=== PATIENT | male | born 1960 | race Caucasian/White ===

== ENCOUNTER 2020-01-03 07:43 | Outpatient (CLI) | payer MEDICARE, SELFPAY ==
--- NOTE | 2020-01-03 07:54 | MR_ITS ---
WS: [id number] MRI LUMBAR SPINE WITH CONTRAST TECHNIQUE: Sagittal T1, T2 and STIR imaging. Axial T1 and T2 imaging. Post gadolinium imaging was obt ained. CLINICAL INFORMATION: LUMBAR DISC HERNIATION W/RADICULOPATHY;HX OF SPINAL SURGERY COMPARISON: None. FINDINGS: Prior postoperative changes laminectomy defects L3 and L4. Chronic mild compression L1 vertebral body unchanged. Hypertrophic changes lumbar spine. Mild lumbar curve. No high-grade central canal stenosi s. Alignment is unchanged since 2014. L1-L2: Normal. L2-L3: Mild annular bulging. Slight narrowing of the subarticular recess. Spinal canal and foramen ar e patent. Mild facet arthropathy. L3-L4: Mild disc bulging with slight effacement of ventral thecal sac. Laminectomy defects. Mild left and no significant right foraminal narrowing. L4-L5: Postoperative changes laminectomy defects. Enhancing granulation tissue in the ventral epidura l space. Mild central canal stenosis with left to right narrowing of the thecal sac. Narrowing of the subarticular recess. Mild to moderate right and no significant left foraminal narrowing. Moderate fa cet arthropathy. L5-S1: Prior laminectomy defects. Mild disc bulging and osteophytic ridging. L5 is partially sacraliz ed. Spinal canal foramen are patent. Moderate facet arthropathy. Small right greater than left renal cysts MR/MR lumbar spine wo/w con [id number] IMPRESSION: 1. Mild lumbar curve. No acute compression. Chronic anterior wedging at L1 unc hanged. 2. Prior laminectomy defects L3-L5 unchanged. 3. Mild central canal stenosis L4-5 with left to right narrowing of the thecal sac and narrowing of the subarticular recess. Enhancing granulation tissue in the ventral epidural space is unchanged. 4. Narrowing of the subarticular recess L3-L4 and L4-L5. 5. Mild to moderate right L4-5 foraminal narrowing. 6. Moderate facet arthropathy L3-L5.
== END 2020-01-03 07:44 | disposition home or self-care (01) ==
PROVIDERS: PCP Family Medicine; Visit Provider Family Medicine
DX: M51.16 Intervertebral disc disorders with radiculopathy, lumbar region (principal)
CPT/HCPCS: 72158; A9579

== ENCOUNTER 2021-01-21 21:35 | Emergency (ER) | payer MEDICARE, SELFPAY ==
[2021-01-21 22:00] VITALS: BP 159/96; PULSE 86; RESP 16; TEMP 36.9; O2SAT 94; BMI 38.2
--- NOTE | 2021-01-21 22:58 | XRR_ITS ---
PROCEDURE INFORMATION: Exam: XR Right Hip Exam date and time: 01/21/2021 10:58 PM Age: 60 years old Clinical indication: Injury or trauma; Fall; Blunt trauma (contusions or hematomas); Right; Hip; Prior surgery; Surgery date: 6+ months; Additional info: Fall, right hip pain TECHNIQUE: Imaging protocol: XR Right hip. Views: 1 view hip with pelvis when performed. COMPARISON: 1. CR XR hip RT 2-3V wo/w pel* [id number] 2019-12-08 13:[address] abdomen pelvis w con* [id number] 2017-04-06 19:[address] abdomen pelvis w con* [id number] 2015-01-25 18:06 4. US pelvic limited [id number] 2019-11-15 07:42 FINDINGS: Bones/joints: Arthrodesis of the right sacroiliac joint.No acute fracture or dislocation. Mild degenerative joint disease. Soft tissues: Unremarkable. XR/XR hip RT 2-3V wo/w pel* [id number] IMPRESSION: No acute osseous abnormality.
--- NOTE | 2021-01-22 00:56 | W.ED.FALL ---
HPI - Fall General: Chief Complaint: Fall Stated Complaint: fell/r hip & back injuries, surgery Time Seen by Provider: 01/22/21 00:53 History of Present Illness: HPI Narrative: This patient presents to the emergency department after a fall this afternoon. Patient plaint of right hip pain. Patient has had previous procedure with pins in the right hip. Patient states significant pain in her right hip area. Is able to ambulate. MD complaint: fall Associated symptoms-after fall: Denies abdominal pain, chest pain, headache(s), lightheadedness or neck pain Review of Systems General: Reports: 10 or more systems reviewed and unremarkable except in HPI and below Const: Denies: fever(s), chills, body aches or fatigue Eyes: Denies: change in vision or blurry vision ENMT: Denies: throat pain, hoarseness or mouth pain Card: Denies: chest pain, palpitations, irregular heart rhythm, edema, swelling of feet/ankles or lightheadedness Resp: Denies: dyspnea, productive cough, non-productive cough, wheezing or pain on inspiration GI: Denies: abdominal pain, nausea or vomiting : Denies: flank pain, dysuria, urinary frequency, urinary urgency or urinary hesitancy Musc: Reports: extremity pain and joint pain; Denies: neck pain, back pain, extremity swelling, joint swelling, joint redness, joint warmth or limited range of motion Skin/Breast: Denies: rash, pruritus, erythema or skin tenderness Neuro: Denies: headache(s), numbness in extremities or weakness in extremities Psych: Denies: anxiety or depression Physical Exam Const: COMMON NORMALS: no acute distress, average body habitus, patient oriented x3, no limitations, healthy appearing, alert and well nourished HENMT: COMMON NORMALS: normocephalic, atraumatic, hearing grossly normal bilaterally, external ears normal, EAC's normal, TM's normal bilaterally, Normal external nose present, Normal nasal mucous membranes and turbinates present, moist oral mucous membranes, oropharynx normal, dentition normal and gingiva normal HEAD & SCALP: normocephalic and atraumatic NOSE: Normal external nose present and Normal nasal mucous membranes and turbinates present EXTERNAL EAR: Yes external ears normal EXTERNAL AUDITORY CANAL: EAC's normal TYMPANIC MEMBRANE: TM's normal bilaterally Neck/C-Spine: COMMON NORMALS: full ROM, no lymphadenopathy, supple, no meningeal signs, no JVD, Thyroid normal and No carotid bruits THYROID: Thyroid normal Chest: COMMONS NORMALS: normal inspection of the chest, normal palpation of entire chest wall, normal inspection of the breasts and normal palpation of the breasts Breast/axilla inspection: Yes normal inspection of the breasts BREAST/AXILLA PALPATION: Yes normal palpation of the breasts Resp: COMMON NORMALS: normal respiratory effort, No retractions, No use of accessory muscles, clear to auscultation bilaterally and percussion normal AUSCULTATION: clear to auscultation bilaterally PERCUSSION: percussion normal Cardio: COMMON NORMALS: no JVD, regular rate, regular rhythm, S1 normal heart sound present, S2 normal heart sound present, No gallops present (Cardio), No clicks present (Cardio), No murmurs present (Cardio), No rub (Cardio) and Peripheral pulses 2+ throughout RATE: regular rate RHYTHM: regular rhythm HEART SOUNDS: S1 normal heart sound present and S2 normal heart sound present PERIPHERAL PULSES: Peripheral pulses 2+ throughout GI: COMMON NORMALS: Normal to inspection, nondistended, normoactive bowel sounds present, Soft to palpation, non-tender, No hepatosplenomegaly present, no masses and no bruits PALPATION: Yes Soft to palpation and Yes No hepatosplenomegaly present : COMMON NORMALS: Yes no CVA tenderness BLADDER/KIDNEY EXAM: Yes no CVA tenderness Back/Pelvis: COMMON NORMALS: no CVA tenderness, thoracic and lumbar spine normal to inspection, no thoracic nor lumbar tenderness, thoraco-lumbar ROM normal and straight leg raise negative bilaterally Extremity: COMMON NORMALS: normal to inspection, full ROM, capillary refill normal, no joint enlargement, no clubbing, cyanosis or edema, no calf tenderness and no pedal edema Neuro: COMMON NORMALS: patient oriented x3 SENSORIUM/ORIENTATION: Yes alert MENINGEAL SIGNS: Yes no meningeal signs Course Reevaluation(s): Reevaluation #1: Negative evaluation in the emergency department for any acute findings. Patient states he does have pain medicines at home that he can take. Patient given instructions alternate heat and ice. Patient be given a shot of Toradol prior to discharge. Patient will follow up with primary care physician in 2 to 3 days as needed. Time: 00:57 Vital Signs: Vital signs: Vital Signs Temperature 98.5 F 01/21/21 22:00 Pulse Rate 86 01/21/21 22:00 Respiratory Rate 16 01/21/21 22:00 Blood Pressure 159/96 01/21/21 22:00 Pulse Oximetry 94 01/21/21 22:00 MDM - Fall MDM Narrative: Medical decision making narrative: Negative evaluation in the emergency department for any acute findings. Patient states he does have pain medicines at home that he can take. Patient given instructions alternate heat and ice. Patient be given a shot of Toradol prior to discharge. Patient will follow up with primary care physician in 2 to 3 days as needed. Medical Records: Attestation: I reviewed the patient's medical records. Lab Data: Attestation: I reviewed the patient's lab results. Imaging Data^: Xray Ortho: Attestation: I personally reviewed and interpreted this imaging study as follows: Radiologist's impression: FINDINGS: Bones/joints: Arthrodesis of the right sacroiliac joint.No acute fracture or dislocation. Mild degenerative joint disease. Soft tissues: Unremarkable. XR/XR hip RT 2-3V wo/w pel* [id number] IMPRESSION: No acute osseous abnormality. Discharge Plan Discharge Patient Disposition: Home Clinical Impression: Fall, Hip pain, right Condition: Stable Discharge Orders: Discharge ED (Routine); Ordered 01/22/21 Ordered By: Randall Sánchez Referrals: Jt Bonds MD [Primary Care Provider] - Discharge Diet: Advance as tolerated Discharge Activity: Resume usual activity and Increase activity as tolerated Patient Instructions: Opioid Safety Activity Restrictions/Additional Instructions: Encourage p.o. fluids. Alternate heat and ice. Advance activity as part tolerated. Follow-up with PCP in 2 to 3 days. Continue home pain medications. Coding Level of Care Code ED Communications Tower Climber for Rebecca Blackman
[2021-01-22] MEDS: ketorolac 30 mg/mL INJ IM (01:01)
== END 2021-01-22 01:05 | disposition home or self-care (01) ==
PROVIDERS: Emergency Provider Emergency Medicine; PCP Family Medicine
DX: M25.551 Pain in right hip (principal)
CPT/HCPCS: 73502; 96372; 99283; J1885

== ENCOUNTER → 2021-05-01 07:37 | Outpatient (BNVA) | payer MEDICARE, SELFPAY | PROVIDERS: PCP Family Medicine; Referring Provider Family Medicine; Visit Provider Urology | DX: R97.20 Elevated prostate specific antigen [PSA] (principal); R30.0 Dysuria | CPT/HCPCS: 81003; 84153; 87086 ==

== ENCOUNTER → 2021-05-17 11:24 | Outpatient (BNVA) | payer MEDICARE, SELFPAY | PROVIDERS: PCP Family Medicine; Visit Provider Urology | DX: R97.20 Elevated prostate specific antigen [PSA] (principal) | CPT/HCPCS: 88305 ==

== ENCOUNTER 2021-05-21 07:20 | Emergency (ER) | payer MEDICARE, SELFPAY ==
[2021-05-21 07:59] VITALS: BP 105/69; PULSE 89; RESP 16; TEMP 36.9; O2SAT 95; BMI 38.0
--- NOTE | 2021-05-21 08:31 | W.ED.WEAKNES ---
HPI - Weakness General: Chief complaint: Weakness Stated complaint: prostate bx 05/17/21, states something not right Time Seen by Provider: 05/21/21 08:04 History of Present Illness: HPI Narrative: 61-year-old male presents emergency room complaining of generally not feeling well. Has had diarrhea and weakness. Is a little bit of dizziness as well. On May 17 he had a prostate biopsy. He has had a little bit of hematuria that has not been increasing. He denies any dysuria urgency or frequency or flank pain. He has had subjective fever with sweats and chills but no actually measured temperature. He has been extremely nauseous but has not had any vomiting. MD Complaint: generalized weakness Onset (ago): hour(s) Duration: constant Location: generalized Migration: none Relieving factors: none Exacerbating factors: none Associated symptoms: Denies chest pain, chills, confusion, melena, decreased appetite, diaphoresis, dysuria, easy bruising, fever(s), headache(s), myalgias, nausea, rash, short of breath, syncope or vomiting Review of Systems Const: Denies: fever(s), chills or diaphoresis ENMT: Denies: throat pain, ear or mastoid pain, nasal discharge or nasal congestion Card: Denies: chest pain or syncope Resp: Denies: dyspnea, productive cough or non-productive cough GI: Denies: nausea, vomiting or melena : Denies: dysuria Skin/Breast: Denies: rash or pruritus Neuro: Denies: headache(s) or confusion Yadiel/Lymph: Denies: easy bruising PFSH ED PFSH: Medical History Elevated PSA Erectile dysfunction Family history of prostate cancer Family History Brother Cancer 3 BROTHERS WITH PROSTATE CANCER Diabetes Father , AT AGE 82 PROSTATE CANCER Cancer Mother , AT AGE 78 BONE CANCER/PARKINSON'S Cancer Social History Alcohol intake: current Alcohol intake frequency: few times a month Marital status: / Current occupational status: retired Physical Exam Const: COMMON NORMALS: no acute distress GENERAL APPEARANCE: cooperative and comfortable ORIENTATION/CONSCIOUSNESS: Yes awake, Yes oriented to person, Yes oriented to place and Yes oriented to time HENMT: COMMON NORMALS: normocephalic, atraumatic and hearing grossly normal bilaterally HEAD & SCALP: normocephalic and atraumatic Neck/C-Spine: COMMON NORMALS: no JVD Resp: COMMON NORMALS: normal respiratory effort, No retractions, No use of accessory muscles and clear to auscultation bilaterally AUSCULTATION: clear to auscultation bilaterally Cardio: COMMON NORMALS: no JVD, regular rate, regular rhythm and No murmurs present (Cardio) RATE: regular rate RHYTHM: regular rhythm GI: COMMON NORMALS: Soft to palpation and No hepatosplenomegaly present AUSCULTATION: Yes normoactive bowel sounds PALPATION: Yes Soft to palpation, No Tenderness to palpation present (GI), No Guarding due to palpation present (GI) and Yes No hepatosplenomegaly present Extremity: COMMON NORMALS: normal to inspection, capillary refill normal, no clubbing, cyanosis or edema, no calf tenderness and no pedal edema Neuro: SENSORIUM/ORIENTATION: Yes oriented to person, Yes oriented to place and Yes oriented to time Skin: COMMON NORMALS: no rashes or lesions noted GENERAL SKIN EXAM: no rashes or lesions noted Course Vital Signs: Vital signs: Vital Signs Temperature 97.9 F 05/21/21 08:49 Pulse Rate 78 05/21/21 08:49 Respiratory Rate 18 05/21/21 08:49 Blood Pressure 99/76 05/21/21 08:49 Pulse Oximetry 97 05/21/21 08:49 MDM - Weakness MDM Narrative: Medical decision making narrative: Labs and imaging reviewed. Patient improved after fluids discharged home on levofloxacin daily for 7 days follow-up with Dr. Pedroza return if has problems Lab Data: Labs: Lab Results 05/21/21 05/21/21 05/21/21 08:15 08:45 08:55 WBC 7.8 10^3/uL 10^3/ uL (4.0-10.0) RBC 5.44 10^6/uL H 10 ^6/uL (4.1-5.3) Hgb 16.3 g/dL g/dL (11.7-16.6) Hct 48.7 % % (42.0-52.0) MCV 89.5 fl fl (80-94) MCH 30.0 pg pg (28.0-34.0) MCHC 33.5 g/dL g/dL (30.0-36.0) RDW 13.2 % % (12.1-15.1) Plt Count 123 10^3/cmm L 10 ^3/cmm (130-400) MPV 12.1 fL H fL (7.4-10.4) Neut % (Auto) 75.6 % % Lymph % (Auto) 14.2 % % Victoria % (Auto) 9.3 % % Eos % (Auto) 0.0 % % Baso % (Auto) 0.3 % % Neut # (Auto) 5.90 10^3/uL 10^3 /uL (1.8-7.7) Lymph # (Auto) 1.1 10^3/uL 10^3/ uL (0.8-4.8) Victoria # (Auto) 0.7 10^3/uL 10^3/ uL (0.2-0.9) Eos # (Auto) 0.0 10^3/uL 10^3/ uL (0.0-0.8) Baso # (Auto) 0.0 10^3/uL 10^3/ uL (0.0-0.1) Nucleated RBC % (a uto) 0 % % Nucleated RBCs # 0.0 /100WBC /100W BC Sodium 134 mmol/L L mmol /L (136-145) Potassium 3.9 mmol/L mmol/L (3.5-5.1) Chloride 97 mmol/L L mmol/ L (98-107) Carbon Dioxide 21 mmol/L L mmol/ L (22-29) Anion Gap 19.9 H (5-19) BUN 15 mg/dL mg/dL (8-23) Creatinine 0.9 mg/dL mg/dL (0.7-1.2) GFR Calculation 85.2 mL/min L mL/ min (90-130) Glucose 161 mg/dL H mg/dL (65-115) Calculated Osmolal ity 282 mOsm/kg L mOs m/kg (285-295) Calcium 8.2 mg/dL L mg/dL (8.5-10.5) Total Bilirubin 0.4 mg/dL mg/dL (0.15-1.2) AST 23 U/L U/L (0-40) ALT 28 U/L U/L (0-41) Alkaline Phosphata se 85 IU/L IU/L (40-130) Total Protein 7.4 g/dL g/dL (6.6-8.7) Albumin 3.9 g/dL g/dL (3.5-5.2) Globulin 3.5 g/dL g/dL (1.3-4.6) Urine Color Yellow (Yellow) Urine Appearance Cloudy (CLEAR) Urine pH 5 (5-7) Ur Specific Gravit y 1.025 (1.005-1.030) Urine Protein 2+ H (Negative) Urine Glucose (UA) Norm (Normal) Urine Ketones 1+ H (Negative) Urine Blood 3+ H (Negative) Urine Nitrate Negative (Negative) Urine Bilirubin 1+ H (Negative) Urine Urobilinogen Norm mg/dL mg/dL (Negative) Ur Leukocyte Reny ase Trace H (Negative) Urine RBC >100 /hpf H /hpf (0-2) Urine WBC 0-4 /hpf H /hpf (0-5) Ur Squamous Epith Cells 5-10 /hpf H /hpf (0-5) Amorphous Sediment Not Reportable Urine Bacteria 1+ /hpf H /hpf (NONE) Discharge Plan Discharge Patient Disposition: Home Clinical Impression: Dehydration, History of prostate biopsy, Weakness Condition: Stable Prescriptions: New levofloxacin 500 mg tablet 500 mg PO DAILY 7 Days Qty: 7 RF: 0 No Action oxycodone-acetaminophen [Percocet] 5-325 mg tablet 1 tab PO ONCE PRN (Reason: pain) 1 Days Qty: 1 RF: 0 diazepam 10 mg tablet 10 mg PO ONCE Qty: 1 RF: 0 levofloxacin 500 mg tablet 500 mg PO DAILY Qty: 4 RF: 0 finasteride 5 mg tablet 5 mg PO DAILY RF: 0 lisinopril 30 mg tablet 15 mg PO DAILY RF: 0 Allergy Relief (cetirizine) 10 mg capsule 10 mg PO DAILY PRNRF: 0 Discharge Orders: Discharge ED (Routine); Ordered 05/21/21 Ordered By: Dionisio Urbina Referrals: Jt Bonds MD [Primary Care Provider] - Discharge Diet: Clear Liquid Discharge Activity: Resume usual activity Patient Instructions: Opioid Safety Activity Restrictions/Additional Instructions: Discharge home we will do another course of antibiotics. Continue his other medications push fluids aggressively follow-up with Dr. Pedroza later this week return if has further problems. Coding Level of Care Code ED Radio Mechanic Apprentice for Rebecca Fwsabrina Exam Comprehensive
[2021-05-21 08:46] LABS: Alanine Aminotransferase 28 U/L (0-41); Albumin Level 3.9 g/dL (3.5-5.2); Alkaline Phosphatase 85 IU/L (40-130); Anion Gap 19.9 (5-19); Aspartate Amino Transferase 23 U/L (0-40); Blood Urea Nitrogen 15 mg/dL (8-23); Calcium 8.2 mg/dL (8.5-10.5); Carbon Dioxide 21 mmol/L (22-29); Chloride 97 mmol/L (98-107); Globulin 3.5 g/dL (1.3-4.6); Glomerular Filtration Rate 85.2 mL/min (90-130); Glucose 161 mg/dL (65-115); Osmolality Calculated 282 mOsm/kg (285-295); Potassium 3.9 mmol/L (3.5-5.1); Sodium 134 mmol/L (136-145); Total Bilirubin 0.4 mg/dL (0.15-1.2); Total Protein 7.4 g/dL (6.6-8.7)
[2021-05-21] MEDS: ondansetron 2 mg/ML SDV 2 mL 4 MG IVP (08:47)
[2021-05-21 08:49] VITALS: BP 99/76; PULSE 78; RESP 18; TEMP 36.6; O2SAT 97
[2021-05-21] MEDS: sodium chloride 0.9% 1,000 ML 999 ML IV (08:55)
[2021-05-21 09:09] LABS: Basophils % 0.3 %; Hematocrit 48.7 % (42.0-52.0); Hemoglobin 16.3 g/dL (11.7-16.6); Lymphocytes # 1.1 10^3/uL (0.8-4.8); Lymphocytes % 14.2 %; Mean Corpuscular HGB Conc 33.5 g/dL (30.0-36.0); Mean Corpuscular Volume 89.5 fl (80-94); Mean Platelet Volume 12.1 fL (7.4-10.4); Monocytes # 0.7 10^3/uL (0.2-0.9); Monocytes % 9.3 %; Neutrophils % 75.6 %; Nucleated Red Blood Cells % 0 %; Platelet Count 123 10^3/cmm (130-400); Red Blood Count 5.44 10^6/uL (4.1-5.3); Red Cell Distribution Width 13.2 % (12.1-15.1); White Blood Count 7.8 10^3/uL (4.0-10.0)
[2021-05-21 09:32] LABS: Blood Urine 3+ (Negative); Glucose Urine UA Norm (Normal); Ketones Urine 1+ (Negative); Protein Urine 2+ (Negative); Specific Gravity, Urine 1.025 (1.005-1.030); Urine Appearance Cloudy (CLEAR); Urine Color Yellow (Yellow); pH Urine 5 (5-7)
[2021-05-21 09:33] LABS: Add Urine Microscopic? YES; Bilirubin Urine 1+ (Negative); Leukocyte Esterase Urine Trace (Negative); Nitrate Urine Negative (Negative); Urobilinogen Urine Norm (Negative)
[2021-05-21 09:50] LABS: Add Urine Culture? Yes; Bacteria Urine 1+ /hpf; RBC Urine >100 /hpf (0-2); WBC Urine 0-4 /hpf (0-5)
== END 2021-05-21 10:45 | disposition home or self-care (01) ==
PROVIDERS: Physician Assistant; Emergency Provider Family Medicine; PCP Family Medicine
DX: R53.1 Weakness (principal); E86.0 Dehydration
CPT/HCPCS: 36415; 80053; 81001; 85025; 87040; 87086; 87205; 96361; 96374; 99284; J2405; J7030

== ENCOUNTER 2021-07-15 11:48 | Outpatient (CLI) | payer MEDICARE, SELFPAY ==
--- NOTE | 2021-07-15 13:41 | N.ONRAD NP_ITS ---
Radiation Oncology Consultation Patient Name: Michael Martinez Date of : 1960 Date of Service: 07/15/2021 Attending Physician: Bhavin Roberts M.D. Michael Martinez was seen in consultation this afternoon at the request of Kendrick Pedroza M.D. for consideration of prostate radiotherapy for the management of a recently diagnosed prostate cancer. He initially was identified to have an elevated PSA level (4 ng/mL) in April 2021. A transrectal ultrasound guided biopsy of the prostate gland was performed on May 17, 2021. Imaging demonstrated a prostatic volume of 36 cc without hypoechoic lesions identified. Pathology diagnosed a prostatic adenocarcinoma with a Michelle score of 3+3 (Grade Group 1) involving 40% of the specimen from the left lateral apex and 60 % of the core from the left mid gland. No perineural invasion was described. The patient presents for evaluation regarding radiotherapy treatment options. I discussed the AJCC clinical stage I (T1CN0) low- risk prostate cancer specific to the patient's diagnosis and the National Comprehensive Cancer Network Guidelines recommendation for active surveillance, external beam radiotherapy, brachytherapy, or surgery. If the patient elects radiotherapy, I would endorse a hypofractionated treatment regimen. I also discussed potential adverse events related to pelvic radiation treatment. I will prescribe Flomax in consideration of the patient???s IPSS of 17. The patient???s treatment plan was discussed with Kendrick Pedroza M.D. Signed by: Dr. Bhavin Roberts 07/15/2021 1:40:10 PM
== END 2021-07-15 11:49 | disposition home or self-care (01) ==
PROVIDERS: PCP Family Medicine; Visit Provider Radiology Radiation Oncology
DX: C61 Malignant neoplasm of prostate (principal); R97.20 Elevated prostate specific antigen [PSA]
CPT/HCPCS: 99205

== ENCOUNTER 2021-08-05 06:48 | Outpatient (RCR) | payer MEDICARE, SELFPAY ==
--- NOTE | 2021-07-30 | CT_ITS ---
Radiation Therapy Planning CT images; total exam DLP: 1101.63 mGy-cm MTDD
--- NOTE | 2021-08-05 09:36 | ONCRAD TMN_ITS ---
Radiation Oncology Treatment Management Note Patient Name: Michael Martinez Date of : 1960 Date of Service: 08/05/2021 Attending Physician: Bhavin Roberts M.D. Michael Martinez is a 59 year old white male diagnosed with a clinical stage I (T1CN0) low- risk prostate cancer. He initially was identified to have an elevated PSA level (4 ng/mL) in April 2021. A transrectal ultrasound guided biopsy of the prostate gland was performed on May 17, 2021. Imaging demonstrated a prostatic volume of 36 cc without hypoechoic lesions identified. Biopsies diagnosed a prostatic adenocarcinoma with a Michelle Score of 3+3 (Grade Group 1) involving 40% of the specimen from the left lateral apex and 60 % of the core from the left mid gland. No perineural invasion was described. The patient has received 3 Gy of a prescribed 60 Chiang to the prostate and seminal vesicles delivered with an intensity modulated radiotherapy plan utilizing a step and shoot treatment technique. Upon review of systems, he denied any genitourinary complaints related to radiotherapy. On physical examination, the patient weighed 287 lbs. His temperature was 97.6 ???F and the blood pressure was 139/93 mmHg. The pulse was 78 bpm and his respiratory rate was 16. There was no erythema within the treatment andersen. Continue prostate radiotherapy as prescribed. Signed by: Dr. Bhavin Roberts 08/05/2021 9:41:43 AM
== END 2021-08-05 23:59 | disposition home or self-care (01) ==
LOC: ONCMED 06:48
PROVIDERS: PCP Family Medicine; Visit Provider Radiology Radiation Oncology
DX: Z51.0 Encounter for antineoplastic radiation therapy (principal); C61 Malignant neoplasm of prostate
CPT/HCPCS: 77300; 77301; 77334; 77338; 77385

== ENCOUNTER 2021-09-02 07:20 | Outpatient (RCR) | payer MEDICARE, SELFPAY ==
--- NOTE | 2021-08-12 09:33 | ONCRAD TMN_ITS ---
Radiation Oncology Treatment Management Note Patient Name: Michael Martinez Date of : 1960 Date of Service: 08/12/2021 Attending Physician: Bhavin Roberts M.D. Michael Martinez is a 59 year old white male diagnosed with a clinical stage I (T1CN0) low- risk prostate cancer. He initially was identified to have an elevated PSA level (4 ng/mL) in April 2021. A transrectal ultrasound guided biopsy of the prostate gland was performed on May 17, 2021. Imaging demonstrated a prostatic volume of 36 cc without hypoechoic lesions identified. Biopsies diagnosed a prostatic adenocarcinoma with a Michelle Score of 3+3 (Grade Group 1) involving 40% of the specimen from the left lateral apex and 60 % of the core from the left mid gland. No perineural invasion was described. The patient has received 12 Gy of a prescribed 60 Chiang to the prostate and seminal vesicles delivered with an intensity modulated radiotherapy plan utilizing a step and shoot treatment technique. Upon review of systems, he denied any genitourinary complaints related to radiotherapy. On physical examination, the patient weighed 284 lbs. His temperature was 98.1 ???F and the blood pressure was 128/79 mmHg. The pulse was 86 bpm and his respiratory rate was 18. There was no erythema within the treatment andersen. Continue prostate radiotherapy as planned. Signed by: Dr. Bhavin Roberts 08/12/2021 9:31:21 AM
--- NOTE | 2021-08-19 09:45 | ONCRAD TMN_ITS ---
Radiation Oncology Treatment Management Note Patient Name: Michael Martinez Date of : 1960 Date of Service: 08/19/2021 Attending Physician: Bhavin Roberts M.D. Michael Martinez is a 59 year old white male diagnosed with a clinical stage I (T1CN0) low- risk prostate cancer. He initially was identified to have an elevated PSA level (4 ng/mL) in April 2021. A transrectal ultrasound guided biopsy of the prostate gland was performed on May 17, 2021. Imaging demonstrated a prostatic volume of 36 cc without hypoechoic lesions identified. Biopsies diagnosed a prostatic adenocarcinoma with a Michelle Score of 3+3 (Grade Group 1) involving 40% of the specimen from the left lateral apex and 60 % of the core from the left mid gland. No perineural invasion was described. The patient has received 27 Gy of a prescribed 60 Chiang to the prostate and seminal vesicles delivered with an intensity modulated radiotherapy plan utilizing a step and shoot treatment technique. Upon review of systems, he denied any genitourinary complaints related to radiotherapy. On physical examination, the patient weighed 285 lbs. His temperature was 97.8 ???F and the blood pressure was 121/74 mmHg. The pulse was 86 bpm and his respiratory rate was 16. There was no erythema within the treatment nadersen. Continue prostate radiotherapy as prescribed. Signed by: Dr. Bhavin Roberts 08/19/2021 9:45:14 AM
--- NOTE | 2021-08-26 09:18 | ONCRAD TMN_ITS ---
Radiation Oncology Treatment Management Note Patient Name: Michael Martinez Date of : 1960 Date of Service: 08/26/2021 Attending Physician: Bhavin Roberts M.D. Michael Martinez is a 59 year old white male diagnosed with a clinical stage I (T1CN0) low- risk prostate cancer. He initially was identified to have an elevated PSA level (4 ng/mL) in April 2021. A transrectal ultrasound guided biopsy of the prostate gland was performed on May 17, 2021. Imaging demonstrated a prostatic volume of 36 cc without hypoechoic lesions identified. Biopsies diagnosed a prostatic adenocarcinoma with a Michelle Score of 3+3 (Grade Group 1) involving 40% of the specimen from the left lateral apex and 60 % of the core from the left mid gland. No perineural invasion was described. The patient has received 42 Gy of a prescribed 60 Chiang to the prostate and seminal vesicles delivered with an intensity modulated radiotherapy plan utilizing a step and shoot treatment technique. Upon review of systems, he denied any genitourinary complaints related to radiotherapy. On physical examination, the patient weighed 290 lbs. His temperature was 97.5 ???F and the blood pressure was 137/91 mmHg. The pulse was 76 bpm and his respiratory rate was 18. There was no erythema within the treatment andersen. Continue prostate radiotherapy as planned. Signed by: Dr. Bhavin Roberts 08/26/2021 9:17:27 AM
--- NOTE | 2021-09-02 09:04 | ONCRAD TMN_ITS ---
Radiation Oncology Treatment Management Note Patient Name: Michael Martinez Date of : 1960 Date of Service: 09/02/2021 Attending Physician: Bhavin Roberts M.D. Michael Martinez is a 59 year old white male diagnosed with a clinical stage I (T1CN0) low- risk prostate cancer. He initially was identified to have an elevated PSA level (4 ng/mL) in April 2021. A transrectal ultrasound guided biopsy of the prostate gland was performed on May 17, 2021. Imaging demonstrated a prostatic volume of 36 cc without hypoechoic lesions identified. Biopsies diagnosed a prostatic adenocarcinoma with a Michelle Score of 3+3 (Grade Group 1) involving 40% of the specimen from the left lateral apex and 60 % of the core from the left mid gland. No perineural invasion was described. The patient has received 54 Gy of a prescribed 60 Chiang to the prostate and seminal vesicles delivered with an intensity modulated radiotherapy plan utilizing a step and shoot treatment technique. Upon review of systems, he denied any genitourinary complaints related to radiotherapy. On physical examination, the patient weighed 290 lbs. His temperature was 97.8 ???F and the blood pressure was 140/88 mmHg. The pulse was 82 bpm and his respiratory rate was 20. There was no erythema within the treatment andersen. Continue prostate radiotherapy as prescribed. Signed by: Dr. Bhavin Roberts 09/02/2021 9:03:23 AM
== END 2021-09-02 23:59 | disposition home or self-care (01) ==
LOC: ONCMED 07:20
PROVIDERS: PCP Family Medicine; Visit Provider Radiology Radiation Oncology
DX: Z51.0 Encounter for antineoplastic radiation therapy (principal); C61 Malignant neoplasm of prostate; Z79.899 Other long term (current) drug therapy
CPT/HCPCS: 77014; 77336; 77385

== ENCOUNTER 2021-09-04 08:19 | Outpatient (RCR) | payer MEDICARE, SELFPAY ==
--- NOTE | 2021-09-04 08:25 | N.ONRD TS_ITS ---
Radiation OncologyTreatment Summary Patient Name: Michael Martinez Date of : 1960 Date of Service: 09/04/2021 Attending Physician: Bhavin Roberts M.D. Michael Martinez has completed prostate radiotherapy for the management of a clinical stage I (T1CN0) low- risk prostate cancer. He initially was identified to have an elevated PSA level (4 ng/mL) in April 2021. A transrectal ultrasound guided biopsy of the prostate gland was performed on May 17, 2021. Imaging demonstrated a prostatic volume of 36 cc without hypoechoic lesions identified. Biopsies diagnosed a prostatic adenocarcinoma with a Tioga Score of 3+3 (Grade Group 1) involving 40% of the specimen from the left lateral apex and 60 % of the core from the left mid gland. No perineural invasion was described. Daily radiotherapy was administered between the dates of August 05, 2021 through September 04, 2021. A prescribed dose of 60 Gy was delivered in 20 fractions encompassing 31 elapsed days. The prostate gland and proximal seminal vesicles were treated utilizing an IMRT plan using a step and shoot treatment technique. The plan arranged seven gantry angles (0???, 50???, 100???, 150???, 210???, 260???, and 310???) replicating an arc. The collimator rotation was 0???. The field sizes spanned between 9.7 cm x 8.3 cm to 11.2 cm x 8.1 cm. The SSDs measured a minimum of 75.2 cm to a maximum of 84 cm. The ports delivered 191 MU, 143 MU, 118 MU, 160 MU, 162 MU, 112 MU, and 148 MU corresponding to the gantry angles described. All treatments were performed on the gloStream linear accelerator with an isocentric technique. The dose was calculated by Anisotropic Analytic Algorithm. A photon energy of 6 MV was prescribed. The plan was normalized to deliver 100% of the prescription dose to 95% of the planning target volume. Signed by: Dr. Bhavin Roberts 09/04/2021 8:24:14 AM
== END 2021-10-03 23:59 | disposition home or self-care (01) ==
LOC: ONCMED 08:19
PROVIDERS: PCP Family Medicine; Visit Provider Radiology Radiation Oncology
DX: Z51.0 Encounter for antineoplastic radiation therapy (principal); C61 Malignant neoplasm of prostate; Z79.899 Other long term (current) drug therapy
CPT/HCPCS: 77014; 77336; 77385; 77427

== ENCOUNTER 2021-10-04 08:29 | Outpatient (RCR) | payer MEDICARE, SELFPAY ==
--- NOTE | 2021-10-04 08:56 | ONCRAD EPV_ITS ---
Radiation Oncology Follow-Up Note Patient Name: Michael Martinez Date of : 1960 Date of Service: 10/04/2021 Attending Physician: Bhavin Roberts M.D. Michael Martinez returned to my office this morning for a routinely scheduled follow-up appointment. He completed hypofractionated prostate radiotherapy in September for the management of his clinical stage I (T1CN0) low- risk prostate cancer. He initially was identified to have an elevated PSA level (4 ng/mL) in April 2021. A transrectal ultrasound guided biopsy of the prostate gland was performed on May 17, 2021. Imaging demonstrated a prostatic volume of 36 cc without hypoechoic lesions identified. Biopsies diagnosed a prostatic adenocarcinoma with a Michelle Score of 3+3 (Grade Group 1) involving 40% of the specimen from the left lateral apex and 60 % of the core from the left mid gland. No perineural invasion was described. Daily radiotherapy was administered between the dates of August 05, 2021 through September 04, 2021. A prescribed dose of 60 Gy was delivered in 20 fractions encompassing 31 elapsed days. On review of systems, the patient denied genitourinary complaints. He currently has been prescribed Flomax with good results. On physical examination, he weighed 297 pounds. The temperature is 97.6???F. His blood pressure was 127/85 mmHg. The pulse was 78 bpm and his respiratory rate was 18 breaths per minute. Genitourinary exam was deferred. In summary, Mr. Martinez returned for a routine post-radiotherapy follow-up. A PSA test obtained prior to this visit was 1.5 ng/mL. He will continue follow-up with his urologist. Signed by: Dr. Bhavin Roberts 10/04/2021 10:15:30 AM
== END 2021-11-02 23:59 | disposition home or self-care (01) ==
LOC: ONCMED 08:29
PROVIDERS: PCP Family Medicine; Visit Provider Radiology Radiation Oncology
DX: C61 Malignant neoplasm of prostate (principal); Z79.899 Other long term (current) drug therapy; Z92.3 Personal history of irradiation
CPT/HCPCS: 99024

== ENCOUNTER 2021-11-14 08:49 | Outpatient (CLI) | payer MEDICARE, SELFPAY | END 2021-11-14 08:50 | disposition home or self-care (01) | LOC: LAB 08:51 | PROVIDERS: PCP Family Medicine; Visit Provider Urology | DX: C61 Malignant neoplasm of prostate (principal); R39.9 Unspecified symptoms and signs involving the genitourinary system | CPT/HCPCS: 36415; 51798; 81003; 84153; 99213 ==

== ENCOUNTER 2022-03-17 08:41 | Outpatient (CLI) | payer MEDICARE, SELFPAY ==
[2022-03-17 09:32] LABS: Prostate Specific Antigen 0.873 ng/mL (0-4)
== END 2022-03-17 08:42 | disposition home or self-care (01) ==
LOC: LAB 08:43
PROVIDERS: PCP Family Medicine; Visit Provider Urology
DX: C61 Malignant neoplasm of prostate (principal)
CPT/HCPCS: 36415; 84153

== ENCOUNTER → 2022-03-20 12:32 | Outpatient (BNVA) | payer MEDICARE, SELFPAY | PROVIDERS: PCP Family Medicine; Visit Provider Urology | DX: C61 Malignant neoplasm of prostate (principal); R39.9 Unspecified symptoms and signs involving the genitourinary system; N52.9 Male erectile dysfunction, unspecified | CPT/HCPCS: 51798; 99213 ==

== ENCOUNTER → 2022-04-03 10:18 | Outpatient (BNVA) | payer MEDICARE, SELFPAY | PROVIDERS: PCP Family Medicine; Visit Provider Urology | DX: R39.9 Unspecified symptoms and signs involving the genitourinary system (principal); N52.9 Male erectile dysfunction, unspecified; C61 Malignant neoplasm of prostate | CPT/HCPCS: 81003 ==

== ENCOUNTER 2022-07-15 09:41 | Outpatient (CLI) | payer MEDICARE, SELFPAY ==
[2022-07-15 11:02] LABS: Prostate Specific AG Urology 0.56 ng/mL (0-4)
== END 2022-07-15 09:42 | disposition home or self-care (01) ==
PROVIDERS: PCP Family Medicine; Visit Provider Urology
DX: C61 Malignant neoplasm of prostate (principal)
CPT/HCPCS: 36415; 84153

== ENCOUNTER → 2022-07-17 08:27 | Outpatient (BNVA) | payer MEDICARE, SELFPAY | PROVIDERS: PCP Family Medicine; Visit Provider Urology | DX: C61 Malignant neoplasm of prostate (principal); N52.9 Male erectile dysfunction, unspecified; R39.9 Unspecified symptoms and signs involving the genitourinary system | CPT/HCPCS: 51741; 51798; 81003; 99213 ==

== ENCOUNTER 2023-03-11 13:19 | Outpatient (CLI) | payer MEDICARE, SELFPAY | END 2023-03-11 13:20 | disposition home or self-care (01) | PROVIDERS: PCP Family Medicine; Visit Provider Family Medicine | DX: R06.09 Other forms of dyspnea (principal) | CPT/HCPCS: 94010; 94726; 94729 ==

== ENCOUNTER → 2023-03-30 14:00 | Outpatient (BNVA) | payer MEDICARE, SELFPAY | PROVIDERS: PCP Family Medicine; Referring Provider Family Medicine; Visit Provider Internal Medicine | DX: R07.9 Chest pain, unspecified (principal) | CPT/HCPCS: 93005 ==

== ENCOUNTER → 2023-04-14 12:46 | Outpatient (BNVA) | payer MEDICARE, SELFPAY | PROVIDERS: PCP Family Medicine; Referring Provider Family Medicine; Visit Provider Internal Medicine | DX: R07.9 Chest pain, unspecified (principal); R00.0 Tachycardia, unspecified; R06.09 Other forms of dyspnea; I10 Essential (primary) hypertension; Z87.891 Personal history of nicotine dependence; R94.31 Abnormal electrocardiogram [ECG] [EKG] | CPT/HCPCS: 93005; 99204 ==

== ENCOUNTER 2023-04-22 07:16 | Outpatient (CLI) | payer MEDICARE, SELFPAY ==
[2023-04-22 07:26] VITALS: BMI 38.9
--- NOTE | 2023-04-22 07:30 | ECG_ITS ---
[facility] Test Date: 2023-04-22 Pat Name: Michael Martinez Department: Room: Gender: Male Transplanter Orchid: Efraín Benedict : 1960 Requested By: Hugo Cuba Order Number: [id number] Edmond MD: Hugo Cuba M.D. Interpretive Statements NAME OF STUDY: LEXISCAN SESTAMIBI STRESS TEST INDICATION: [Chest Pain; Shortness of Breath, ] Procedure: At the baseline, the blood pressure was 118/96 mmHg with a heart rate of 77 bpm. The electrocardiogram showed normal sinus rhythm, normal axis with normal ST and T's. The Lexiscan was infused over a period of 20 seconds. A total of 0.4 mg of Lexiscan was infused. The stress phase was continued for a total of 5 minutes. Heart rate was at the end of stress phase was 106 bpm and a blood pressure of 137/91 mmHg. The EKG at the peak infusion revealed normal sinus rhythm with no significant ST-T wave changes. Sestamibi was injected 20 seconds after the Lexiscan infusion. Blood pressure at the end of recovery phase was 138/94 mmHg with a heart rate of 97 bpm. Conclusion: 1. Normal EKG response to Lexiscan infusion 2. No Lexiscan induced chest pain or cardiac arrhythmia. 3. Normal blood pressure and heart rate response. 4. Sestamibi/sestamibi perfusion scan pending; see separate report. Electronically Signed On 04-30-2023 12:48:52 CDT by Hugo Cuba M.D. [id number]
--- NOTE | 2023-04-22 07:30 | NMCV_ITS ---
NM maynor perf SPECT r/s* [id number] Michael Martinez Age: 63 Gender: M : 1960 Exam Date: 04/22/2023 07:50 Ordering Phys: Hugo Cuba M.D ([email or web address]) Technologist: SADIQ Santoyo Exam Location: [facility] Indications: CHEST PAIN, SHORTNESS OF BREATH STRESS TEST Please see separate stress test report in [facility] for full findings IMAGE PROTOCOL Rest/Stress 1 Lexiscan Day Radiopharmaceutical Dose (mCi) Administration Site Administered by Rest: Tc-99m 10.9 IV Sunny Luz, SENIOR BRANCH MANAGER Sestamibi Stress:Tc-99m 32.9 IV Sunny Luz, SENIOR BRANCH MANAGER Sestamibi Rest: 22-Apr-2023 60 Discovery 630 Stress: 22-Apr-2023 30 Discovery 630 0.4mg Lexiscan. Images obtained in supine and prone position. SPECT RESULTS Technical Quality: Excellent Raw Data Analysis: Normal Image Corrections: No attenuation or motion correction applied Summed Stress Score: 0 Summed Rest Score: 0 Summed Difference Score: 0 PERFUSION FINDINGS SPECT images demonstrate homogeneous tracer distribution throughout the myocardium. FUNCTIONAL RESULTS (calculated via Gated SPECT) Stress Image LV EF (%): 64 Stress EDV (mL):100 TID: 1.05 Stress ESV (mL):36 FUNCTIONAL FINDINGS: There is normal left ventricular systolic function. IMPRESSIONS 1. Normal myocardial perfusion imaging with no evidence of ischemia 2. LV systolic function is normal Hugo Cuba MD (Electronically Signed) Final Date: 22 April 2023 13:17 S
[2023-04-22] MEDS: regadenoson 0.4 Mg/5 ml Syringe IVP (08:53)
[2023-04-22 09:13] VITALS: BP 138/94; PULSE 97
== END 2023-04-22 07:17 | disposition home or self-care (01) ==
LOC: CDL 07:16
PROVIDERS: PCP Family Medicine; Visit Provider Internal Medicine
DX: R07.9 Chest pain, unspecified (principal); R06.02 Shortness of breath
CPT/HCPCS: 36415; 78452; 85378; 93017; 96374; A9500; J2785

== ENCOUNTER 2023-04-30 08:12 | Outpatient (CLI) | payer MEDICARE, SELFPAY ==
--- NOTE | 2023-04-30 08:30 | USCV_ITS ---
Michael Martinez Age: 63 Gender: M : 1960 Exam Date: 04/30/2023 08:28 Ordering Phys: Hugo Cuba M.D ([email or web address]) Technologist: Melinda Hernandez Exam Location: [facility] [place] Indication: sob chest pain BP: 120 / 80 HR: 76 Rhythm: Sinus Technical Quality: Adequate MEASUREMENTS (Male / Female) Normal Values 2D ECHO LV Diastolic Diameter PLAX 3.8 cm 4.2 - 5.9 / 3.9 - 5.3 cm LV Systolic Diameter PLAX 2.8 cm LV Chamber Size 3.2 cm IVS Diastolic Thickness 0.9 cm 0.6 - 1.0 / 0.6 - 0.9 cm IVS Systolic Thickness 1.3 cm LVPW Diastolic Thickness 1.3 cm 0.6 - 1.0 / 0.6 - 0.9 cm LVPW Systolic Thickness 1.3 cm LVOT Diameter 2.1 cm LV Ejection Fraction 2D Teich 53.7 % LV Ejection Fraction MOD 2C 46.6 % LV Ejection Fraction 2C AL 47.7 % LA Diameter 3.2 cm LA Width 3.5 cm LA Height 3.6 cm RA Width 2.9 cm RA Height 2.9 cm Aorta at Sinotubular Diameter 3.1 cm IVC Diameter 2.1 cm M-MODE Aortic Annulus Diameter 4.0 cm LA Ao Ratio MM 0.9 MV E Point Septal Separation 0.4 cm DOPPLER AV Peak Velocity 125.0 cm/s LVOT Peak Velocity 93.0 cm/s AV Area Cont Eq vti 3.6 cm squared AV Area Cont Eq pk 2.6 cm squared MV Area PHT 2.9 cm squared Mitral E to A Ratio 0.9 MV E' Velocity 37.0 cm/s Mitral E to MV E' Ratio 9.9 Mitral E to LV E' Lateral Ratio 9.9 Mitral E to LV E' Septal Ratio 10.0 TR Peak Velocity 179.8 cm/s TR Peak Gradient 12.9 mmHg TR Mean Velocity 121.0 cm/s TR Mean Gradient 6.8 mmHg TR Velocity Time Integral 35.8 cm TV Peak E Velocity 65.0 cm/s Right Atrial Pressure 3.0 mmHg Pulmonary Artery Systolic Pressu 15.9 mmHg RV Acceleration Time 0.1 s RV Ejection Time 0.3 s RV AcT/ET 0.3 FINDINGS Left Ventricle Technically limited quality echocardiogram because of poor ultrasonic windows. Left ventricle is normal in size. LV systolic function is normal with EF of 50 to 55%. No regional wall motion abnormalities are seen. Grade 1 diastolic dysfunction Right Ventricle Normal in size and function Right Atrium Normal in size Left Atrium Normal in size Mitral Valve Structurally normal mitral valve. Aortic Valve Structurally normal aortic valve.No significant stenosis or regurgitation. Tricuspid Valve Mild tricuspid regurgitation. Insufficient TR jet to calculate RVSP. Pulmonic Valve Mild pulmonic regurgitation. Pericardium Normal Aorta Normal in size IVC Grossly normal CONCLUSIONS Technically limited quality echocardiogram because of poor ultrasonic windows. LV systolic function is normal with EF of 50 to 55%. Grade 1 diastolic dysfunction. Mild tricuspid regurgitation Mild pulmonic regurgitation. No comparison studies are available Hugo Cuba MD (Electronically Signed) Final Date: 03 May 2023 11:56 S
== END 2023-04-30 08:13 | disposition home or self-care (01) ==
LOC: RAD 08:13
PROVIDERS: PCP Family Medicine; Visit Provider Internal Medicine
DX: I07.1 Rheumatic tricuspid insufficiency (principal); R06.02 Shortness of breath; R07.9 Chest pain, unspecified
CPT/HCPCS: 93306

== ENCOUNTER → 2023-06-17 12:05 | Outpatient (BNVA) | payer MEDICARE, SELFPAY | PROVIDERS: PCP Family Medicine; Visit Provider Internal Medicine | DX: R06.09 Other forms of dyspnea (principal); I10 Essential (primary) hypertension; Z87.891 Personal history of nicotine dependence | CPT/HCPCS: 99214 ==

== ENCOUNTER → 2024-01-05 12:40 | Outpatient (BNVA) | payer MEDICARE, MEDICAID, SELFPAY | PROVIDERS: PCP Family Medicine; Referring Provider Family Medicine; Visit Provider Student in an Organized Health Care Education/Training Program | DX: M72.0 Palmar fascial fibromatosis [Dupuytren]; M79.641 Pain in right hand; M79.642 Pain in left hand | CPT/HCPCS: 73130; 99203 ==

== ENCOUNTER → 2024-06-15 12:19 | Outpatient (BNVA) | payer MEDICARE, MEDICAID, SELFPAY | PROVIDERS: PCP Family Medicine; Visit Provider Internal Medicine | DX: R06.09 Other forms of dyspnea (principal); I10 Essential (primary) hypertension; Z87.891 Personal history of nicotine dependence | CPT/HCPCS: 99213 ==

== ENCOUNTER 2025-05-22 08:34 | Emergency (ER) | payer MEDICARE, MEDICAID, SELFPAY ==
--- OUTSIDE RECORDS SUMMARY | 2024-01-25 07:15 | XMS_ITS ---
Author Organization [employer], [facility] Address [address] [place] [address] Care Team Providers Care Lining Caser Name Role Phone Vamshi SCHAEFER, Jt Primary Care Provider [facility] [phone] Encounters Encounter Location Date Provider Diagnosis [facility] [place] [address] [place] [address] 01/25/2024 [facility] History of prostate cancer Z85.46 and BPH loc w urin obs/LUTS N40.1 Assessments Encounter Date Diagnosis (ICD Code) Assessment Notes Treatment Notes Treatment Clinical Notes Section Notes 01/25/2024 History of prostate cancer (ICD-10 - Z85.46) 01/25/2024 BPH loc w urin obs/LUTS (ICD-10 - N40.1) Plan Of Treatment Pending Test Test Name Order Date PSA-Diagnostic 01/25/2024 Next Appt Details Provider Name:[facility], 04/30/2026 09:15:00 AM, [address] [place], [address], Progress Notes * Michael BACON DDOB:[birth year] (65 yo M)Acc No.[id number]:01/25/2024 Patient: Isak Michael MCDERMOTT :1960 A ge:63 Y S ex:Male Address:[address] [place] [address] [address], [place] [address] Subjective: * Chief Complaints: * * Medical History: * Surgical History: * Hospitalization/Major Diagno stic Procedure: * Medications: Objective: * Vitals: * Physical Examination: Assessment: * Assessment: 1. H istory of prostate cancer - Z85.46 2 . B PH loc w urin obs/LUTS - N40.1 Plan: * Treatment: 2.?BPH loc w urin obs/LUTS?LAB: PSA-Diagnostic* Catalina Grace 01/25/2024 0 1:20:26 PM CDT >Patient needs prior to appt on 03/14/24. * Procedure Codes: * * Date:
--- OUTSIDE RECORDS SUMMARY | 2024-04-30 03:00 | XMS_ITS ---
Author Organization [facility] Address [address] [place] [address] Care Team Providers Care Acid Blower Name Role Phone Vamshi SCHAEFER, Jt Primary Care Provider Unavailabl Lizzy Briones Unavailable [phone] Migration, Provider Unavailable Unavailable REASON FOR VISIT EMR-Rich Encounters Encounter Location Date Provider Diagnosis Migrated_Facility 0 0 04/30/2024 Provider Migration Plan Of Treatment No Information Progress Notes * Michael BACON DDOB:[birth year] (65 yo M)Acc No.[id number]:04/30/2024 Patient: Isak PANTOJAMichael ADAEMS :1960 A ge:64 Y S ex:Male Address:[address] [place] [address] [address], [place] [address] Subjective: * Chief Complaints: * E MR-Rich * * Date:
--- OUTSIDE RECORDS SUMMARY | 2024-05-01 03:00 | XMS_ITS ---
Author Organization [facility] Address [address] [place] [address] Care Team Providers Care Wire Mesh Knitter Name Role Phone Vamshi SCHAEFER, Jt Primary Care Provider Unavailabl Lizzy Briones Unavailable [phone] Migration, Provider Unavailable Unavailable REASON FOR VISIT EMR-Rich Encounters Encounter Location Date Provider Diagnosis Migrated_Facility 0 0 05/01/2024 Provider Migration Plan Of Treatment No Information Progress Notes * Michael BACON DDOB:[birth year] (65 yo M)Acc No.[id number]:05/01/2024 Patient: Isak PANTOJAMichael ADAMES :1960 A ge:64 Y S ex:Male Address:[address] [place] [address] [address], [place] [address] Subjective: * Chief Complaints: * E MR-Rich * * Date:
[2025-05-22 08:40] VITALS: BP 133/90; PULSE 76; RESP 16; TEMP 36.6; O2SAT 98; BMI 29.7
--- NOTE | 2025-05-22 08:53 | CT_ITS ---
WS: [id number] CT LUMBAR SPINE TECHNIQUE: Noncontrast CT of the lumbar spine with coronal and sagittal reformatted images. CLINICAL INFORMATION: Back pain left leg radicular pain history of prostate cancer COMPARISON: CT 2016 DLP: 1074.[address] scans at [facility] use at least one of these dose optimization techniques: automated exposure control; mA and/or kV adjustment per patient size (includes targeted exams where dose is matched to clinical indication); or iterative reconstruction. FINDINGS: Moderate to advanced spondylitic changes lumbar spine. Anterior hypertrophic changes. Lumbar curve. Ankylosis T12-L1. Evidence of prior decompressive laminectomies L3-L5. RIGHT SI joint screw fusion. Spondylitic changes somewhat progressed since 2016. Partially visualized solid-appearing mass LEFT mid kidney measuring up to 3.8 cm. Renal neoplasm not excluded. Recommend follow-up with ultrasound or contrast-enhanced CT abdomen pelvis. 1.7 cm cyst lower pole RIGHT kidney. Adrenal glands are normal. Cholecystectomy clips. Diverticulosis. L1-L2: Normal. L2-L3: Moderate facet arthropathy. Narrowing of the subarticular recess bilaterally. Foramen are patent. L3-L4: Disc osteophyte complex with narrowing of the subarticular recess bilaterally. Laminectomy defects. Mild residual central canal stenosis. Moderate bilateral bony foraminal narrowing. L4-L5: Mild disc bulging with narrowing of the subarticular recess bilaterally. Mild central canal stenosis. Prior laminectomy defects. Moderate facet arthropathy. Moderate RIGHT and mild LEFT foraminal narrowing. L5-S1: No significant disc bulging. Moderate facet arthropathy. Spinal canal and foramen are patent. CT/CT lumbar spine wo con* [id number] IMPRESSION: 1. Partially visualized solid-appearing LEFT renal mass measuring up to at millie st 3.8 cm. Renal neoplasm not excluded. Recommend further evaluation with ultra sound or contrast-enhanced CT. 2. RIGHT SI joint screw fixation. 3. Laminectomy defects L3-L5. Mild residual central canal stenosis L3-4 and L4 -5 with narrowing of the subarticular recess bilaterally. 4. Moderate RIGHT L4-5 foraminal narrowing. 5. Moderate bilateral L3-4 bony foraminal narrowing.
[2025-05-22] MEDS: methylPREDNISolone sod succ 125 mg/2 mL INJ IVP (09:10)
--- NOTE | 2025-05-22 09:18 | ED_ITS ---
HPI - Back Pain/Injury 2 General: Chief Complaint: Back Pain/Injury Stated Complaint: back pain Time Seen by Provider: 05/22/25 08:40 History of Present Illness: Six 5-year-old male presents emergency room with complaint of back pain with pain radiating into his left leg. No saddle paresthesias no fecal incontinence no urinary retention has a history of prostate cancer is not currently being treated no recent trauma or fall. Back pain has been present for the last 2 weeks progressively worsening. No previous surgery to the back. No hematochezia melena symptoms [place] no dysuria urgency or frequency or hematuria Associated symptoms: Deny abdominal pain, chills, dysuria, fever(s) or urinary urgency Related Data Home Medications ?Medication ?Instructions ?Recorded ?Confirmed cetirizine 10 mg capsule (Allergy 10 mg PO DAILY PRN A LLERGIES 04/19/21 05/22/25 Relief (cetirizine)) finasteride 5 mg tablet 5 mg PO DAILY 04/19/2105/22 lisinopril 30 mg tablet 15 mg PO DAILY 04/19/2105/06 Previous Rx's ?Medication ?Instructions ?Recorded tadalafil 20 mg tablet 20 mg PO DAILY PRN sexual ac tivity 03/20/22 #20 tabs diclofenac sodium 75 mg 75 mg PO Q12H PRN pain #20 t abs 05/22/25 tablet,delayed release methylprednisolone 4 mg tablets in See Rx Instructions PO .COMPLEX 05/22/25 a dose pack (Medrol (Edu)) #21 ea tizanidine 4 mg tablet 4 mg PO Q6H PRN muscle spast icity 05/22/25 #20 tabs Allergies Allergy/AdvReac Type Severity Reaction Status Date / Time No Known Allergies Allergy Verified 01/05/24 13:00 Review of Systems 2 Const: Denies: fever(s) or chills Card: Denies: chest pain Resp: Denies: dyspnea GI: Denies: abdominal pain : Denies: dysuria, urinary frequency or urinary urgency Musc: Denies: neck pain or back pain Skin/Breast: Denies: rash PFSH ED 2 PFSH: Medical History Osteoarthritis, chronic Hyperglycemia Prostate cancer Erectile dysfunction Family history of prostate cancer Elevated PSA Surgical History History of spinal fusion History of cholecystectomy History of cervical spinal surgery History of sinus surgery History of straightening of nasal septum Family History Brother Cancer 3 BROTHERS WITH PROSTATE CANCER Diabetes Father , AT AGE 82 PROSTATE CANCER Cancer Mother , AT AGE 78 BONE CANCER/PARKINSON'S Cancer Social History Smoking and tobacco/nicotine status: former use of tobacco/nicotine Alcohol intake: current Alcohol intake frequency: few times a month Substance/Drug Use: never Marital status: Life Partner Current occupational status: retired Physical Exam 2 Const: COMMON NORMALS: no acute distress GENERAL APPEARANCE: cooperative and comfortable ORIENTATION/CONSCIOUSNESS: Yes awake, Yes oriented to person, Yes oriented to place and Yes oriented to time HENMT: COMMON NORMALS: normocephalic, atraumatic and hearing grossly normal bilaterally HEAD & SCALP: normocephalic and atraumatic Resp: COMMON NORMALS: normal respiratory effort, No retractions, No use of accessory muscles and clear to auscultation bilaterally AUSCULTATION: clear to auscultation bilaterally Cardio: COMMON NORMALS: regular rate, regular rhythm and No murmurs present (Cardio) RATE: regular rate RHYTHM: regular rhythm GI: COMMON NORMALS: Soft to palpation and No hepatosplenomegaly present A USCULTATION: Yes normoactive bowel sounds PALPATION: Yes Soft to palpation, No Tenderness to palpation present (GI), No Guarding due to palpation present (GI) and Yes No hepatosplenomegaly present Extremity: COMMON NORMALS: normal to inspection, capillary refill normal, no clubbing, cyanosis or edema, no calf tenderness and no pedal edema Neuro: SENSORIUM/ORIENTATION: Yes oriented to person, Yes oriented to place and Yes oriented to time OTHER: Lower extremities intact neurovascularly. Straight leg raising positive on the left. Skin: COMMON NORMALS: no rashes or lesions noted GENERAL SKIN EXAM: no rashes or lesions noted Course 2 Vital Signs: Vital signs: Vital Signs Temperature 97.8 F 05/22/25 08:40 Pulse Rate 76 05/22/25 08:40 Respiratory Rate 18 05/22/25 10:28 Blood Pressure 133/90 05/22/25 08:40 Pulse Oximetry 98 05/22/25 08:40 MDM - Back Pain/Injury Medical Decision Making Back pain improved after medications given his radicular symptoms are improved as well he has no red flag symptoms for cauda equina at this time CT did not show any concern for metastatic lesions to the lumbar spine this is evaluated given his history of prostate cancer. There is an incidental finding of partially visualized left renal mass. He is not having urinary tract symptoms at this time. Discussed with radiologist we will set him up for an outpatient CT of the abdomen and pelvis to further evaluate. I discussed with Dr. Bonds he is aware and will follow-up on it to ensure workup is completed. Medical Records I reviewed the patient's medical records. Labs I reviewed the patient's lab results. 05/22/25 09:49 05/22/25 09:49 Radiology Impressions Lumbar Spine CT 05/22/25 08:53 IMPRESSION: 1. Partially visualized solid-appearing LEFT renal mass measuring up to at least 3.8 cm. Renal neoplasm not excluded. Recommend further evaluation with ultrasound or contrast-enhanced CT. 2. RIGHT SI joint screw fixation. 3. Laminectomy defects L3-L5. Mild residual central canal stenosis L3-4 and L4- 5 with narrowing of the subarticular recess bilaterally. 4. Moderate RIGHT L4-5 foraminal narrowing. 5. Moderate bilateral L3-4 bony foraminal narrowing. Laboratory Results WBC 7.00 10^3/uL (3.29-11.43) 05/22/25 09:49 RBC 5.09 10^6/uL (3.85-5.65) 05/22/25 09:49 Hgb 15.10 g/dL (11.27-16.99) 05/22/25 09:49 Hct 46.1 % (37-53) 05/22/25 09:49 MCV 90.6 fl (82-101) 05/22/25 09:49 MCH 29.7 pg (27-33) 05/22/25 09:49 MCHC 32.8 g/dL (30-55) 05/22/25 09:49 RDW 13.5 % (12.1-15.1) 05/22/25 09:49 Plt Count 194 10^3/cmm (157-399) 05/22/25 09:49 MPV 11.2 fL (7.4-10.4) H 05/22/25 09:49 Neut % (Auto) 63.5 % 05/22/25 09:49 Lymph % (Auto) 23.6 % 05/22/25 09:49 Sully % (Auto) 7.3 % 05/22/25 09:49 Eos % (Auto) 4.4 % 05/22/25 09:49 Baso % (Auto) 1.1 % 05/22/25 09:49 Neut # (Auto) 4.44 10^3/uL (1.8-7.7) 05/22/25 09:49 Lymph # (Auto) 1.7 10^3/uL (0.8-4.8) 05/22/25 09:49 Sully # (Auto) 0.5 10^3/uL (0.2-0.9) 05/22/25 09:49 Eos # (Auto) 0.3 10^3/uL (0.0-0.8) 05/22/25 09:49 Baso # (Auto) 0.1 10^3/uL (0.0-0.1) 05/22/25 09:49 Nucleated RBC % (auto) 0 % 05/22/25 09:49 Nucleated RBCs # 0.0 /100WBC 05/22/25 09:49 Sodium 137 mmol/L (136-145) 05/22/25 09:49 Potassium 4.6 mmol/L (3.5-5.1) 05/22/25 09:49 Chloride 104 mmol/L (98-107) 05/22/25 09:49 Carbon Dioxide 23 mmol/L (22-29) 05/22/25 09:49 Anion Gap 14.6 (5-19) 05/22/25 09:49 BUN 15 mg/dL (8-23) 05/22/25 09:49 Creatinine 0.7 mg/dL (0.7-1.2) 05/22/25 09:49 GFR Calculation 112.5 mL/min (90-130) 05/22/25 09:49 Glucose 110 mg/dL (65-115) 05/22/25 09:49 Calculated Osmolality 285 mOsm/kg (285-295) 05/22/25 09:49 Calcium 9.1 mg/dL (8.5-10.5) 05/22/25 09:49 Total Bilirubin 0.6 mg/dL (0.15-1.2) 05/22/25 09:49 AST 12 U/L (0-40) 05/22/25 09:49 ALT 10 U/L (0-41) 05/22/25 09:49 Alkaline Phosphatase 76 U/L (40-130) 05/22/25 09:49 Total Protein 6.7 g/dL (6.6-8.7) 05/22/25 09:49 Albumin 4.1 g/dL (3.5-5.2) 05/22/25 09:49 Globulin 2.6 g/dL (1.3-4.6) 05/22/25 09:49 All radiology interpretation(s) finalized by discharge Discharge Plan Discharge Patient Disposition: Home Clinical Impression: Lumbar radiculopathy, Prostate cancer, Left kidney mass Condition: Stable Prescriptions: New tizanidine 4 mg tablet 4 mg PO Q6H PRN (Reason: muscle spasticity) Qty: 20 0RF Rx Instructions: do not exceed 3 doses per 24 hrs diclofenac sodium 75 mg tablet,delayed release (DR/EC) 75 mg PO Q12H PRN (Reason: pain) Qty: 20 0RF methylprednisolone [Medrol (Edu)] 4 mg tablets,dose pack See Rx Instructions .ROUTE .COMPLEX Qty: 21 0RF Rx Instructions: orally per package directions No Action finasteride 5 mg tablet 5 mg PO DAILY lisinopril 30 mg tablet 15 mg PO DAILY Allergy Relief (cetirizine) 10 mg capsule 10 mg PO DAILY PRN (Reason: ALLERGIES) tadalafil 20 mg tablet 20 mg PO DAILY PRN (Reason: sexual activity) Qty: 20 12RF Rx Instructions: administer approximately 30min before sexual activity; NO NITROGLYCERIN! Discharge Orders: Discharge ED (Routine); Ordered 05/22/25 Ordered By: Dionisio Urbina Referrals: Jt Bonds MD [Primary Care Provider, Family Practice] Discharge Diet: Usual diet Discharge Activity: Increase activity as tolerated Patient Instructions: Acute Low Back Pain (ED), Opioid Safety, Pain Management, Patient Portal & Yuriy Instructions Activity Restrictions/Additional Instructions: [facility]. It is very important that you follow up as instructed or that you return to the Emergency Department should you have concerns or if your condition changes or worsens in any way. Emergency department visits are focused on emergent conditions, in some cases you may require further evaluation on an outpatient basis. You were seen in the emergency room with complaints of back pain. Your back pain appears to be a nerve root irritation. You should follow-up with your primary care doctor for this we will discharge home on steroids diclofenac and muscle relaxers. Incidental notation on the CT of the left kidney mass this will need to be followed up with your primary care doctor we have scheduled an outpatient CT. (Please note that included in your discharge packet is information concerning opioid safety and pain management. This information is given to all patients were discharged from the ER regardless of their discharge diagnosis or the medicines they usually take or are prescribed.) Print Language: Tongan Coding Level of Care Code ED Account Associate for Rebecca Blackman
[2025-05-22 09:55] LABS: Hematocrit 46.1 % (37-53); Hemoglobin 15.10 g/dL (11.27-16.99); Mean Corpuscular HGB Conc 32.8 g/dL (30-55); Mean Corpuscular Hemoglobin 29.7 pg (27-33); Mean Corpuscular Volume 90.6 fl (82-101); Nucleated Red Blood Cells % 0 %; Platelet Count 194 10^3/cmm (157-399); Red Blood Count 5.09 10^6/uL (3.85-5.65); White Blood Count 7.00 10^3/uL (3.29-11.43)
[2025-05-22 10:11] LABS: Alanine Aminotransferase 10 U/L (0-41); Albumin Level 4.1 g/dL (3.5-5.2); Alkaline Phosphatase 76 U/L (40-130); Anion Gap 14.6 (5-19); Aspartate Amino Transferase 12 U/L (0-40); Blood Urea Nitrogen 15 mg/dL (8-23); Calcium 9.1 mg/dL (8.5-10.5); Carbon Dioxide 23 mmol/L (22-29); Chloride 104 mmol/L (98-107); Globulin 2.6 g/dL (1.3-4.6); Glucose 110 mg/dL (65-115); Osmolality Calculated 285 mOsm/kg (285-295); Potassium 4.6 mmol/L (3.5-5.1); Sodium 137 mmol/L (136-145); Total Protein 6.7 g/dL (6.6-8.7)
[2025-05-22 10:28] VITALS: RESP 18
[2025-05-22] MEDS: morphine 4 mg/mL SDV 1 mL IVP (10:28)
[2025-05-22 12:04] VITALS: BP 122/79; PULSE 93; O2SAT 96
[2025-05-22 12:06] VITALS: BP 122/79; PULSE 93; O2SAT 96
--- OUTSIDE RECORDS SUMMARY | 2025-05-22 12:48 | XMS_ITS | Patient Health Record ---
Author Organization [facility] Address [address] [place] [address] Care Team Providers Care Content Producer Name Role Phone tJ Bonds MD Primary Care Provider Jaz HONEYCUTTKAISER SEGAL Unavailable [phone] Eddie Sweet Unavailable [phone] Allergies No Known Allergies Results Component Value Reference Range Notes Urinalysis, Routine Reviewed date:04/28/2025 08:13:46 AM Interpretation: Performing Lab: Notes/Report: Urine-Color yellow Appearance clear Glucose - Bilirubin - Ketones - Specific [place] 1.030 Occult Blood - pH 6.0 Urine Protein - Urobilinogen,Semi-Qn - Nitrite, Urine - WBC Esterase - Urinalysis, Routine Reviewed date:10/27/2024 08:19:53 AM Interpretation: Performing Lab: Notes/Report: Urine-Color yellow Appearance clear Glucose - Bilirubin - Ketones 2+ Specific [place] 1.030 Occult Blood - pH 6.0 Urine Protein - Urobilinogen,Semi-Qn - Nitrite, Urine - WBC Esterase - PSA, TOTAL (5363) Reviewed date:10/25/2024 07:53:01 AM Interpretation: Performing Lab:[place], [id number] [facility], [id number] Sarah Harris MD Notes/Report: PSA, TOTAL 0.11 < OR = 4.00 ng/mL different assay methods cannot be used chemiluminescent method. Values obtained from standardized against the WHO standard. The test evidence of the presence or absence of disease. The total PSA value from this assay system is Supriya). Comparison of serial PSA results should be This test was performed using the Siemens interchangeably. PSA levels, regardless of value, should not be interpreted as absolute interpreted with this fact in mind. result will be approximately 20% lower when compared to the equimolar-standardized total PSA (Rashmi Reason For Referral No Information Medications Medication SIG (Take, Route, Frequency, Duration) Notes Start Date End Date Status Tadalafil 20 MG 1 tablet as needed O rally as needed; Duration: 30 days 04/28/2025 10/25/2025 Active metFORMIN HCl ER 500 MG 1 tablet with ev ening meal Orally Once a day Active Finasteride 5 MG 1 tablet Orally Once a day; Duration: 90 days 10/27/2024 10/22/2025 Active ZyrTEC 10 MG 1 tablet Orally Once a day Active Lisinopril 30 MG 1 tablet Orally Once a day Active Social History Tobacco Use: Social History Observation Description Date Details (start date - stop date) Former Smoker NA - NA Tobacco Control (Standard) Question Answer Notes Tobacco use: Former smoker How long has it been since you last smoked? Grea ter than 10 years AUDIT-C (Standard) Question Answer Notes Did you have a drink containing alcohol in the p ast year? No Points 0 Interpretation Negative Section Notes: 0 0 0 0 0 no tobacco products no tobacco products no tobacco products 0 0 0 0 Problems Problem Type SNOMED Code ICD Code Onset Dates Problem Status W/U Status Risk Notes Problem Lower urinary tract symptoms due to benign prostatic hypertrophy (38894237201751) Benign prostatic hyperplasia with lower urinary tract symptoms (N40.1) Active confirmed Problem History of malignant neoplasm of prostate (764028383) History of prostate cancer (Z85.46) Active confirmed Problem Degeneration of lumbar intervertebral disc (41129259) Disc degeneration, lumbar (M51.36) Active confirmed Problem History of radiation exposure (299832028) Status post radiation therapy (Z92.3) Active confirmed Problem Erectile dysfunction (disorder) (286064216) Erectile dysfunction, unspecified erectile dysfunction type (N52.9) Active confirmed Problem Screening for malignant neoplasm of prostate (007781834) Prostate cancer screening (Z12.5) Active confirmed Problem Malignant tumor of prostate (780421230) Prostate CA (C61) Active confirmed Problem Sacroiliitis (93007922) Sacroiliitis (M46.1) Active confirmed Problem Malignant tumor of prostate (400913299) Prostate cancer (C61) Active confirmed Problem Benign prostatic hypertrophy with outflow obstruction (735049206) BPH loc w urin obs/LUTS (N40.1) Active confirmed Vital Signs Heart Rate 66 /min 04/28/2025 Height-cm 182.88 cm 04/28/2025 Blood pressure diastolic 84 mm Hg 04/28/2025 Weight-kg 103.42 kg 04/28/2025 Height 72 in 04/28/2025 Blood pressure systolic 114 mm Hg 04/28/2025 Weight 228 lbs 04/28/2025 BMI 30.92 kg/m2 04/28/2025 Procedures Procedure Date Ordered Date Performed Result Body Sit e Bladder Scan 10/27/2024 10/27/2024 N/A Bladder Scan 04/28/2025 04/28/2025 8 mL Encounters Encounter Location Date Provider Diagnosis [facility] [address] [place] [address] 10/27/2024 Eddie Sweet BPH loc w urin obs/LUTS N40.1 ; History of prostate cancer Z85.46 ; Status post radiation therapy Z92.3 and Erectile dysfunction, unspecified erectile dysfunction type N52.9 [facility] [address] [place] [address] 04/28/2025 Eddie Sweet Benign prostatic hyperplasia with lower urinary tract symptoms N40.1 ; BPH loc w urin obs/LUTS N40.1 ; History of prostate cancer Z85.46 ; Status post radiation therapy Z92.3 ; Erectile dysfunction, unspecified erectile dysfunction type N52.9 and Prostate cancer C61 [facility] [address] [place] [address] 08/18/2024 [facility] JONES Prostate cancer C61 [facility] [address] [place] [address] 03/30/2025 Eddie Sweet Prostate CA C61 Assessments Encounter Date Diagnosis (ICD Code) Assessment Notes Treatment Notes Treatment Clinical Notes Section Notes 08/18/2024 Prostate cancer (ICD-10 - C61) 10/27/2024 BPH loc w urin obs/LUTS (ICD-10 - N40.1) 64-yo male with h/o prostate cancer s/p EBRT in 2021, BPH/LUTS, and ED. He is on cialis and finasteride. PSA of 0.1 corrected to 0.2 on finasteride. Stable at this time. Notes stable LUTS on Finasteride. ED stable on Cialis PRN. He will continue to return in 6m with UA/PVR and PSA. All question were answered and pt is satisfied with plan of care. Plan: - Continue finasteride - Continue Cialis 20 mg as needed - RTC in 6 months with UA, PSA - RTC or call sooner with any concerns 03/30/2025 Prostate CA (ICD-10 - C61) 04/28/2025 Benign prostatic hyperplasia with lower urinary tract symptoms (ICD-10 - N40.1) 65-yo male with h/o prostate cancer s/p EBRT in 2021, BPH/LUTS, and ED. He is on cialis PRN and daily finasteride. PSA of 0.1 corrected to 0.2 on finasteride. Stable at this time. Notes stable LUTS on Finasteride. ED stable on Cialis PRN. He will continue to return care, safely in 1 year with UA/PVR and PSA. All question were answered and pt is satisfied with plan of care. Plan: - Continue finasteride; refill as needed. - Continue Cialis 20 mg as needed; refill as needed - RTC in 6 months with UA, PSA - RTC or call sooner with any concerns 04/28/2025 BPH loc w urin obs/LUTS (ICD-10 - N40.1) 65-yo male with h/o prostate cancer s/p EBRT in 2021, BPH/LUTS, and ED. He is on cialis PRN and daily finasteride. PSA of 0.1 corrected to 0.2 on finasteride. Stable at this time. Notes stable LUTS on Finasteride. ED stable on Cialis PRN. He will continue to return care, safely in 1 year with UA/PVR and PSA. All question were answered and pt is satisfied with plan of care. Plan: - Continue finasteride; refill as needed. - Continue Cialis 20 mg as needed; refill as needed - RTC in 6 months with UA, PSA - RTC or call sooner with any concerns 04/28/2025 History of prostate cancer (ICD-10 - Z85.46) 65-yo male with h/o prostate cancer s/p EBRT in 2021, BPH/LUTS, and ED. He is on cialis PRN and daily finasteride. PSA of 0.1 corrected to 0.2 on finasteride. Stable at this time. Notes stable LUTS on Finasteride. ED stable on Cialis PRN. He will continue to return care, safely in 1 year with UA/PVR and PSA. All question were answered and pt is satisfied with plan of care. Plan: - Continue finasteride; refill as needed. - Continue Cialis 20 mg as needed; refill as needed - RTC in 6 months with UA, PSA - RTC or call sooner with any concerns 10/27/2024 History of prostate cancer (ICD-10 - Z85.46) 64-yo male with h/o prostate cancer s/p EBRT in 2021, BPH/LUTS, and ED. He is on cialis and finasteride. PSA of 0.1 corrected to 0.2 on finasteride. Stable at this time. Notes stable LUTS on Finasteride. ED stable on Cialis PRN. He will continue to return in 6m with UA/PVR and PSA. All question were answered and pt is satisfied with plan of care. Plan: - Continue finasteride - Continue Cialis 20 mg as needed - RTC in 6 months with UA, PSA - RTC or call sooner with any concerns 10/27/2024 Status post radiation therapy (ICD-10 - Z92.3) 64-yo male with h/o prostate cancer s/p EBRT in 2021, BPH/LUTS, and ED. He is on cialis and finasteride. PSA of 0.1 corrected to 0.2 on finasteride. Stable at this time. Notes stable LUTS on Finasteride. ED stable on Cialis PRN. He will continue to return in 6m with UA/PVR and PSA. All question were answered and pt is satisfied with plan of care. Plan: - Continue finasteride - Continue Cialis 20 mg as needed - RTC in 6 months with UA, PSA - RTC or call sooner with any concerns 04/28/2025 Status post radiation therapy (ICD-10 - Z92.3) 65-yo male with h/o prostate cancer s/p EBRT in 2021, BPH/LUTS, and ED. He is on cialis PRN and daily finasteride. PSA of 0.1 corrected to 0.2 on finasteride. Stable at this time. Notes stable LUTS on Finasteride. ED stable on Cialis PRN. He will continue to return care, safely in 1 year with UA/PVR and PSA. All question were answered and pt is satisfied with plan of care. Plan: - Continue finasteride; refill as needed. - Continue Cialis 20 mg as needed; refill as needed - RTC in 6 months with UA, PSA - RTC or call sooner with any concerns 04/28/2025 Erectile dysfunction, unspecified erectile dysfunction type (ICD-10 - N52.9) 65-yo male with h/o prostate cancer s/p EBRT in 2021, BPH/LUTS, and ED. He is on cialis PRN and daily finasteride. PSA of 0.1 corrected to 0.2 on finasteride. Stable at this time. Notes stable LUTS on Finasteride. ED stable on Cialis PRN. He will continue to return care, safely in 1 year with UA/PVR and PSA. All question were answered and pt is satisfied with plan of care. Plan: - Continue finasteride; refill as needed. - Continue Cialis 20 mg as needed; refill as needed - RTC in 6 months with UA, PSA - RTC or call sooner with any concerns 10/27/2024 Erectile dysfunction, unspecified erectile dysfunction type (ICD-10 - N52.9) 64-yo male with h/o prostate cancer s/p EBRT in 2021, BPH/LUTS, and ED. He is on cialis and finasteride. PSA of 0.1 corrected to 0.2 on finasteride. Stable at this time. Notes stable LUTS on Finasteride. ED stable on Cialis PRN. He will continue to return in 6m with UA/PVR and PSA. All question were answered and pt is satisfied with plan of care. Plan: - Continue finasteride - Continue Cialis 20 mg as needed - RTC in 6 months with UA, PSA - RTC or call sooner with any concerns 04/28/2025 Prostate cancer (ICD-10 - C61) 65-yo male with h/o prostate cancer s/p EBRT in 2021, BPH/LUTS, and ED. He is on cialis PRN and daily finasteride. PSA of 0.1 corrected to 0.2 on finasteride. Stable at this time. Notes stable LUTS on Finasteride. ED stable on Cialis PRN. He will continue to return care, safely in 1 year with UA/PVR and PSA. All question were answered and pt is satisfied with plan of care. Plan: - Continue finasteride; refill as needed. - Continue Cialis 20 mg as needed; refill as needed - RTC in 6 months with UA, PSA - RTC or call sooner with any concerns Plan Of Treatment Pending Test Test Name Order Date UA Without Micro-Auto [id number] 01/12/2023 Prothrombin Time 05031 07/10/2020 ABORh 22385, 94318 07/10/2020 Antibody Screen 16341 07/10/2020 Basic Metabolic Panel 00297 07/10/2020 Basic Metabolic Panel 69125 07/19/2020 CBC w\ Auto Diff 87254 07/10/2020 Partial Thromboplastin Time 81401 2020 PSA Diagnostic--38453 07/21/2022 CBC Reflex Man Diff 50630, 75203 021 WBC Auto Diff--19500 07/19/2020 BB ABORH-53525,12150 07/17/2020 COVID 19 PCR--88558 07/10/2020 Chest PA/Lat-92828 07/10/2020 Chest PA/Lat-85774 07/17/2020 Sacroiliac Joints < 3V-87584 07/19/2020 Sacroiliac Joints < 3V-06258 07/19/2020 XR Outside CD 12/08/2019 XR Outside CD 12/08/2019 zzzFluoro >1h4 07/19/2020 zzzMRI Outside CD 01/03/2020 zzzMRI Outside CD 01/03/2020 PSA, TOTAL (5363) 08/18/2024 PSA-Diagnostic 03/30/2025 PSA-Diagnostic 01/25/2024 PSA-Diagnostic 04/28/2025 Future Test Test Name Order Date Lumbosacral Spine Comp w/ Bending-58546 03/12/2021 Next Appt Details Provider Name:[facility] Tee, 04/30/2026 09:15:00 AM, [address] [place], [address], Insurance Providers Payer Name Payer Address Payer Phone Subscriber Number Group Number Insured Name Patient Relationship to Insured Coverage Start Date Coverage End Date [employer] Medicare Replacement [address] [address] [place], [place] [id number] Michael Martinez Self - patient is the insured Medical (General) History Medical History History ICD Code measles, chicken pox arthritis high blood pressure back pain diabetes Cancer Hemorrhoids Surgical History Surgery Date(Month/Year) right SI joint fusion 07/2020
--- OUTSIDE RECORDS SUMMARY | 2025-05-22 12:49 | XMS_ITS ---
Author Organization Unknown Medications Date Medication Dosage DosageUnit StartDate StopDate StopReason Active DoseQuantity DoseUnit Dispense DispenseUnit Refills NdcCode DrugCode PharmacyId IsPrescription MappedMedication Srcstatus Custom 025 12:00 :00 AM metformin er 500 mg tablet,exte nded release 24 hr 90.0000 00 08/16/2024 12:00:00 AM 11/11/2024 12:00:00 AM 0 90.202539 2 [id number] [facility]80 P HISTORICAL
--- OUTSIDE RECORDS SUMMARY | 2025-05-22 12:50 | XMS_ITS | Clinical Summary ---
Author Organization [facility] Address [address] [facility] Attn: Epic Prelude ADT MICHEAL SANCHEZ [id number] Care Team Providers Care Stained Glass Installer Name Role Phone Jt Bonds MD Primary Care Provider [phone] Allergies No known active allergies Medications simvastatin (ZOCOR) 20 mg tablet Take 20 mg by mouth Daily LATE. 08/02/2014 Active traMADoL (ULTRAM) 50 mg tablet Take 50 mg by mouth daily. 08/02/2014 Active finasteride (PROSCAR) 5 mg tablet Take 5 mg by mouth daily. 08/02/2014 Active lisinopriL (PRINIVIL) 5 mg tablet Take 5 mg by mouth daily. 08/02/2014 Active aspirin (ECOTRIN EC) 81 mg Tablet, Delayed Release (E.C.) Take 81 mg by mouth daily. 08/02/2014 Active diphenhydramine HCl (ALLERGY MEDICINE ORAL) Take 1 Tab by mouth daily. 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 Gender Identity Not on file Sexual Orientation Not on file Last Filed Vital Signs Vital Sign Reading Time Taken Comments Blood Pressure 115/74 05/24/2021 2:32 PM ELECTRICAL SUPERINTENDENT Pulse 103 05/24/2021 2:32 PM ELECTRICAL SUPERINTENDENT Temperature 36.8 C (98.2 F) 05/24/2021 2:32 PM ELECTRICAL SUPERINTENDENT Respiratory Rate 18 05/24/2021 2:32 PM ELECTRICAL SUPERINTENDENT Oxygen Saturation 94% 05/24/2021 2:32 PM ELECTRICAL SUPERINTENDENT Inhaled Oxygen Concentration - - Weight 119.9 kg (264 lb 6.4 oz) 08/02/2014 8:23 AM ELECTRICAL SUPERINTENDENT Height 182.9 cm (6') 08/02/2014 8:23 AM ELECTRICAL SUPERINTENDENT Body Mass Index 35.86 08/02/2014 8:23 AM ELECTRICAL SUPERINTENDENT Plan of Treatment Health Maintenance Due Date Last Done Comments DTAP/TDAP/TD VACCINES (1 - Tdap) 1977 COLORECTAL SCREENING 2003 Colorectal Cancer Screening 2003 FIT-DNA Q 3 years 2003 FIT/FOBT Q 1 year 2003 Flex Sig/CT Colonography Q 5 years 2003 PNEUMOCOCCAL VACCINE 50+ YEARS (1 of 1 - PCV) 04/22/20 08 ZOSTER VACCINE (1 of 2) 2008 INFLUENZA VACCINE (#1) 2025 RSV VACCINE (60+ or ) (1 - 1-dose 75+ series) 2033 Insurance [id number] [place], [place] [id number] [place] [address] MCR Care Teams Stained Glass Installer Relationship Specialty Start Date End Date Jt Bonds MD [address] [place] [id number] PCP - General Family Practice 08/04/14
--- OUTSIDE RECORDS SUMMARY | 2025-05-22 12:50 | XMS_ITS | Data Portability ---
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 funez continues to monitor his history of prostate cancer. he was just seen. h got a positive report. Not available 11/11/2024 08:22:55 Plan of Treatment Reminders Order Date Submit Date Provider Last Modified By Organization Details Last Modified Time Details Appointments OFFICE VISIT SUKHWINDER 2024 07:30A M Carlitos Pretty MD Not available Not available Not available Lab PSA, serum or plasma - ordered by [facility]/ will fax YF 2024 025 [employer] [facility], [address] [facility] [address], [address] [place], [address], 04/25/2025 08:24:11 hemoglobi n A1C/hemog lobin total, QN, blood 2024 025 [facility], [address], [address], [place], [address], 11/07/2024 10:22:47 CMP, serum or plasma 2024 025 [facility], [address], [address], [place], [address], 11/07/2024 11:51:26 LDL, direct, serum 2024 [facility], [address] [place] [address], [address] [place], [address], 11/08/2024 06:49:43 HbA1c (hemoglob in A1c), blood 2023 [facility] [address] [place], [address], 05/04/2024 09:52:47 microalbu min/creat inine, mass ratio, urine 2023 [employer] [facility], [address] [place] [address], [address] , [place], [address], 05/06/2024 09:10:31 CMP, serum or plasma 2023 024 [facility], [address] [place] [address], [address], 05/04/2024 09:41:20 CBC 2023 024 [facility], [address] [place] [address], [address], 05/04/2024 08:59:22 lipid panel, blood 2023 024 [facility], [address] [place] [address], [address], 05/04/2024 09:42:34 Referral None recorded. Procedures None recorded. Surgeries None recorded. Imaging None recorded. Medication Orders lisinopri l 5 mg tablet [email or web address] [facility], [address], [place], [address], 11/11/2024 08:28:45 Patient TargetsNo targets recorded. Patient InstructionsNo instructions recorded. Reason for Referral None Reported. Results Created Date Observation Date Name Description Value Unit Range Abnormal Flag Note LastModifiedBy Organization Detail LastModifiedTime 04/29/2004/30/2024 PSA, TOTAL PSA, total 0.10 NG/mL < or = 4.00 normal The total PSA value from this assay nasim m is stand ardiz ed again st the WHO stand jo ann. The test resul t will be appro ximat marleny 20% lower when redd red to the equim olar- stand ardiz ed total PSA (Torres man Coult er). Redd rison of seria l PSA resul ts shoul d be inter prete d with this fact in mind. This test was perfo rmed using the [employer] chemi lumin escen t metho d. Value s obtai cameron from diffe rent assay metho ds canno t be used inter monterroso eably . PSA level s, regar dless of value , shoul d not be inter prete d as absol mashpee evide nce of the prese nce or absen ce of disea se. Not Available [facility] [address], [place], [address], 04/30/2024 07:12:59 05/04/2005/04/2024 CBC WBC 8.0 x10 4.5-10 .5 Not Available [facility] [address] [facility] [address], [place], [address], 05/04/2024 08:59:22 05/04/2005/04/2024 CBC RBC 5.05 x10 4.30-5 .90 Not Available [facility] [address] [facility] [address] [facility] [address], [place], [address], 05/04/2024 08:59:22 05/04/20 24 05/04/2024 CBC HGB 15.4 g/dL 13.5-1 8.0 Not Available [facility] [address] [facility] [address], [place], [address], 05/04/2024 08:59:22 05/04/20 24 05/04/2024 CBC HCT 45.6 % 35.0-6 0.0 Not Available [facility] [address] [facility] [place] 1, [place], [address], 05/04/2024 08:59:22 05/04/20 24 05/04/2024 CBC MCV 90.3 fL 80.0-9 9.9 Not Available [facility] [address] [facility] [place] 1, [place], [address], 05/04/2024 08:59:22 05/04/2005/04/2024 CBC MCH 30.4 pg 27.0-3 2.0 Not Available [facility] [address] [facility] [place] 1, [place], [address], 05/04/2024 08:59:22 05/04/20 24 05/04/2024 CBC MCHC 33.7 g/dL 32.0-3 6.0 Not Available [facility] [address] [facility] [place] 1, [place], [address], 05/04/2024 08:59:22 05/04/20 24 05/04/2024 CBC RDW 13.8 % 11.5-1 4.5 Not Available [facility] [address] [facility] [place] 1, [place], [address], 05/04/2024 08:59:22 05/04/20 24 05/04/2024 CBC plt 173.6 x10 150.0- 451.0 Not Available [facility] [address] [facility] [place] 1, [place], [address], 05/04/2024 08:59:22 05/04/20 24 05/04/2024 CBC lymphocytes % 22.9 % 20.0-5 0.0 Not Available [facility] [address] [facility] [facility], [place], [address], 05/04/2024 08:59:22 05/04/20 24 05/04/2024 CBC granulcytes % 63.1 % 30.0-7 0.0 Not Available [facility] [address] [facility] [place] 1, [place], [address], 05/04/2024 08:59:22 05/04/20 24 05/04/2024 CBC monocytes % 8.9 % 2.0-16 .0 Not Available [facility] [address] [facility], [place], [address], 05/04/2024 08:59:22 05/04/20 24 05/04/2024 CBC granulcytes# 5.0 x10 Not Gay ilable [facility] [address] [address], [place], [address], 05/04/2024 08:59:22 05/04/20 24 05/04/2024 CBC lymphocytes # 1.8 x10 Not Available [facility] [address] [address], [place], [address], 05/04/2024 08:59:22 05/04/20 24 05/04/2024 CBC monocytes # 0.7 x10 Not Avai lable [facility] [address] [address], [place], [address], 05/04/2024 08:59:22 05/04/20 24 05/04/2024 CMP (MALE ) glucose 142.0 mg/dL 60.0-9 9.0 high Not Available [facility] [address] [facility] [place] 1, [place], [address], 05/04/2024 09:41:20 05/04/20 24 05/04/2024 CMP (MALE ) BUN (blood urea nitrogen) 17.0 mg/dL 10.0-2 6.0 Not Available [facility] [address], [place], [address], 05/04/2024 09:41:20 05/04/20 24 05/04/2024 CMP (MALE ) creatinine (serum) 0.8 mg/dL 0.4-1. 5 Not Available [facility] [address] [facility] [place] 1, [place], [address], 05/04/2024 09:41:20 05/04/20 24 05/04/2024 CMP (MALE ) BUN/creatini ne ratio 20.73 ratio Not Available [facility] [address] [facility] [place] 1, [place], [address], 05/04/2024 09:41:20 05/04/20 24 05/04/2024 CMP (MALE ) eGFR calculated 99.9 Not Available [facility] [address] [facility] [place] 1, [place], [address], 05/04/2024 09:41:20 05/04/20 24 05/04/2024 CMP (MALE ) total protein 7.2 g/dL 6.0-8. 5 Not Available [facility] [address] [facility] [place] 1, [place], [address], 05/04/2024 09:41:20 05/04/20 24 05/04/2024 CMP (MALE ) total bilirubin 0.8 mg/dL 0.2-1. 3 Not Available [facility] [address] [facility] [place] 1, [place], [address], 05/04/2024 09:41:20 05/04/20 24 05/04/2024 CMP (MALE ) albumin 4.2 g/dL 3.5-5. 5 Not Available [facility] [address] [facility] [place] 1, [place], [address], 05/04/2024 09:41:20 05/04/20 24 05/04/2024 CMP (MALE ) globulin 3.0 calc Not Available [facility] [address] [facility] [address], [place], [address], 05/04/2024 09:41:20 05/04/20 24 05/04/2024 CMP (MALE ) AST (SGOT) 25.0 U/L 0.0-46 .0 Not Available [facility] [address] [facility] [address], [place], [address], 05/04/2024 09:41:20 05/04/20 24 05/04/2024 CMP (MALE ) altv (SGPT) 21.0 U/L 13.0-6 9.0 normal Not Available [facility] [address] [facility] [address], [place], [address], 05/04/2024 09:41:20 05/04/20 24 05/04/2024 CMP (MALE ) A/G ratio 1.4 ratio Not Available [facility] [address] [facility] [address], [place], [address], 05/04/2024 09:41:20 05/04/20 24 05/04/2024 CMP (MALE ) ALP phos 93.0 U/L 30.0-1 40.0 normal Not Available [facility] [address] [facility] [address], [place], [address], 05/04/2024 09:41:20 05/04/20 24 05/04/2024 CMP (MALE ) calcium 9.0 mg/dL 8.4-10 .5 Not Available [facility] [address] [facility], [place], [address], 05/04/2024 09:41:20 05/04/20 24 05/04/2024 CMP (MALE ) sodium 140.0 mmol/ L 136.0- 145.0 Not Available [facility] [address], [place], [address], 05/04/2024 09:41:20 05/04/2005/04/2024 CMP (MALE ) potassium 4.1 mmol/ L 3.5-5. 1 Not Available [facility] [address], [place], [address], 05/04/2024 09:41:20 05/04/20 24 05/04/2024 CMP (MALE ) chloride 105.0 mmol/ L 98.0-1 10.0 normal Not Available [facility] [address], [place], [address], 05/04/2024 09:41:20 05/04/20 24 05/04/2024 CMP (MALE ) C02 26.0 mmol/ L 22.0-3 1.0 Not Available [facility] [address] [facility] [place] [facility] 1, [place], [address], 05/04/2024 09:41:20 05/04/20 24 05/04/2024 CMP (MALE ) anion gap 9.0 calc Not Available [facility] [address] [facility] 1, [place], [address], 05/04/2024 09:41:20 05/04/2005/04/2024 CMP (MALE ) osmolality 292.8 calc Not Available [facility] [address] [facility] 1, [place], [address], 05/04/2024 09:41:20 05/04/2005/04/2024 LIPID PROFI LE (MALE ) cholesterol 243.0 mg/dL 0.0-20 0.0 high Not Available [facility] [address] [facility] 1, [place], [address], 05/04/2024 09:42:34 05/04/20 05/04/2024 LIPID PROFI LE (MALE ) trig 161.0 mg/dL 0.0-15 0.0 high Not Available [facility] [address] [facility] [address], [place], [address], 05/04/2024 09:42:34 05/04/20 24 05/04/2024 LIPID PROFI LE (MALE ) HDL - direct 36.0 mg/dL >40.0 low Not Available [facility] [address] [facility] [address], [place], [address], 05/04/2024 09:42:34 05/04/2005/04/2024 LIPID PROFI LE (MALE ) VLDL - direct 32.2 mg/dL Not Available [facility] [address] [facility] [address], [place], [address], 05/04/2024 09:42:34 05/04/20 24 05/04/2024 LIPID PROFI LE (MALE ) LDL - direct 174.8 mg/dL 0.0-13 0.0 high Not Available [facility] [address] [facility] [address], [place], [address], 05/04/2024 09:42:34 05/04/20 24 05/06/2024 ALBUM IN, RANDO M URINE W/CRE ATINI NE creatinine, random urine 213 mg/dL 20-320 normal Not Available [facility] [employer] [address] [place], [address], 05/06/2024 09:10:30 05/04/2005/06/2024 ALBUM IN, RANDO M URINE W/CRE ATINI NE albumin, urine 0.5 mg/dL see note: normal Refer ence Range : Refer ence Range Not estab lishe d Not Available [facility] [address] [place], [address], 05/06/2024 09:10:30 05/04/20 24 05/06/2024 ALBUM IN, RANDO M URINE W/CRE ATINI NE albumin/crea tinine ratio, random urine 2 mg/g_ creat <30 normal The ADA defin es abnor malit ies in album in excre tion as follo ws: Album inuri a Categ ory Resul t (mg/g creat inine ) Estrellita l to Mildl y incre ased <30 Moder ately incre ased 30-29 9 Sever marleny incre ased > OR = 300 The ADA recom mends that at least two of three speci mens colle cted withi n a 3-6 month perio d be abnor mal befor e consi vidya g a patie nt to be withi n a diagn ostic categ ory. Not Available [facility] [address] [place], [address], 05/06/2024 09:10:30 05/04/20 24 05/04/2024 HbA1c (hemo globi n A1c), blood HbA1c 6.3 Not Available [facility] ([facility]) [address] [place], [address], 05/04/2024 08:14:49 11/08/19 25 11/07/2024 HBA1C hemaglobin A1C 4.6 4.2-6. 5 Not Available [facility] [address], [address], 11/07/2024 10:22:47 11/08/19 25 11/07/2024 CMP (MALE ) glucose 104.0 mg/dL 60.0-9 9.0 high Not Available [facility] [address] [facility] 1, [place], [address], 11/07/2024 11:51:26 11/08/19 25 11/07/2024 CMP (MALE ) BUN (blood urea nitrogen) 19.0 mg/dL 10.0-2 6.0 Not Available [facility] [address] [facility] [address], [address], 11/07/2024 11:51:26 11/08/19 25 11/07/2024 CMP (MALE ) creatinine (serum) 0.7 mg/dL 0.4-1. 5 Not Available [facility] [address] [facility], [place], [address], 11/07/2024 11:51:26 11/08/19 25 11/07/2024 CMP (MALE ) BUN/creatini ne ratio 27.14 ratio Not Available [facility] [address] [facility], [place], [address], 11/07/2024 11:51:26 11/08/19 25 11/07/2024 CMP (MALE ) eGFR calculated 119.9 Not Available [facility] [address] [address], [place], [address], 11/07/2024 11:51:26 11/08/19 25 11/07/2024 CMP (MALE ) total protein 7.3 g/dL 6.0-8. 5 Not Available [facility] [address] [facility], [place], [address], 11/07/2024 11:51:26 11/08/19 25 11/07/2024 CMP (MALE ) total bilirubin 0.8 mg/dL 0.2-1. 3 Not Available [facility] [address] [address], [place], [address], 11/07/2024 11:51:26 11/08/19 25 11/07/2024 CMP (MALE ) albumin 4.2 g/dL 3.5-5. 5 Not Available [facility] [address] [facility], [place], [address], 11/07/2024 11:51:26 11/08/19 25 11/07/2024 CMP (MALE ) globulin 3.1 calc Not Available [facility] [address] [facility] [address], [place], [address], 11/07/2024 11:51:26 11/08/19 25 11/07/2024 CMP (MALE ) AST (SGOT) 20.0 U/L 0.0-46 .0 Not Available [facility] [address] [facility] [address], [place], [address], 11/07/2024 11:51:26 11/08/19 25 11/07/2024 CMP (MALE ) altv (SGPT) 14.0 U/L 13.0-6 9.0 normal Not Available [facility] [address] [facility] [address], [place], [address], 11/07/2024 11:51:26 11/08/19 25 11/07/2024 CMP (MALE ) A/G ratio 1.4 ratio Not Available [facility] [address] [address], [place], [address], 11/07/2024 11:51:26 11/08/19 25 11/07/2024 CMP (MALE ) ALP phos 70.0 U/L 30.0-1 40.0 normal Not Available [facility] [address] [address], [place], [address], 11/07/2024 11:51:26 11/08/19 25 11/07/2024 CMP (MALE ) calcium 9.6 mg/dL 8.4-10 .5 Not Available [facility] [address] [address], [place], [address], 11/07/2024 11:51:26 11/08/19 25 11/07/2024 CMP (MALE ) sodium 140.0 mmol/ L 136.0- 145.0 Not Available [facility] [address] [address], [place], [address], 11/07/2024 11:51:26 11/08/19 25 11/07/2024 CMP (MALE ) potassium 4.8 mmol/ L 3.5-5. 1 Not Available [facility] [address] [facility] [address], [place], [address], 11/07/2024 11:51:26 11/08/19 25 11/07/2024 CMP (MALE ) chloride 106.0 mmol/ L 98.0-1 10.0 normal Not Available [facility] [address] [facility] [address], [place], [address], 11/07/2024 11:51:26 11/08/19 25 11/07/2024 CMP (MALE ) C02 28.0 mmol/ L 22.0-3 1.0 Not Available [facility] [address] [facility] [address], [place], [address], 11/07/2024 11:51:26 11/08/19 25 11/07/2024 CMP (MALE ) anion gap 6.0 calc Not Available [facility] [address] [facility] [address], [place], [address], 11/07/2024 11:51:26 11/08/19 25 11/07/2024 CMP (MALE ) osmolality 291.5 calc Not Available [facility] [address] [address], [place], [address], 11/07/2024 11:51:26 11/08/19 25 11/08/2024 DIREC T LDL direct LDL 169 mg/dL <100 high Fely able range <100 mg/dL for prima ry preve ntion ; <70 mg/dL for patie nts with CHD or diabe tic patie nts with > or = 2 CHD risk facto rs. Not Available [facility] [address], [place], [address], 11/08/2024 06:49:43 04/24/20 25 04/25/2025 PSA, TOTAL PSA, total 0.14 NG/mL < or = 4.00 normal The total PSA value from this assay syste m is stand ardiz ed again st the WHO stand jo ann. The test resul t will be appro ximat marleny 20% lower when redd red to the equim olar- stand ardiz ed total PSA (Torres man Coult er). Redd rison of seria l PSA resul ts shoul d be inter prete d with this fact in mind. This test was perfo rmed using the [employer] ns chemi lumin escen t metho d. Value s obtai cameron from diffe rent assay metho ds canno t be used inter monterroso eably . PSA level s, regar dless of value , shoul d not be inter prete d as absol mashpee evide nce of the prese nce or absen ce of disea se. Not Available [facility] [address] [place], [address], 04/25/2025 08:24:11 Result Notes None recorded. Problems Name Problem SNOMED Code Status Onset Date Resolution Date Notes Provider Name and Address Organization Details Recorded Time Fracture of vertebral column 87643696 Active 2021 fx of vertebre; fell out of a tree, had 6 fx GENIA zuluaga [facility] 5 08:05:36 Gastroesop hageal reflux disease 517589853 Active 2021 Gastroesop hageal Reflux Disease; 05/02/2022 8:51AM by Melissa Castaneda RN, Office Visit; Promoted; acuity set as *; GENIA zuluaga [facility] 5 08:05:26 Hyperchole sterolemia 91164342 Active 2021 GENIA zuluaga [facility] 4 14:57:52 History of malignant neoplasm of prostate 200310452 Active 2022 GENIA PACHECO null, [facility] 5 08:05:26 History of adenomatou s polyp of colon 907660116 Active 2022 GENIA JUNIOR [facility] 5 08:05:26 Hyperglyce jonny 70093984 Active 2022 GENIAAren zuluaga [facility] 4 14:58:24 Morbid obesity 240510848 Active 2023 GENIA JUNIOR [facility] 5 08:05:26 Essential hypertensi on 29642403 Active 2024 GENIA JUNIOR zuluaga [facility] 5 08:18:36 Problem Notes None recorded. Procedures Surgical History Date Name Laterality Status Provider Name and Address Organization Details Recorded Time 12/03/19 Colonoscopy completed [facility] 12/30/2023 11:49:53 cholecystectomy completed [facility] 02/20/2023 12:44:17 open reduction of fracture with internal fixation completed [facility] 02/20/2023 12:44:46 procedure on nasal septum completed [facility] 02/20/2023 12:44:56 lumbar spinal fusion completed [facility] 02/20/2023 12:45:19 spinal fusion with graft completed [facility] 02/20/2023 12:45:43 Imaging Results None recorded. Procedure Notes None recorded. Medical Equipment None Reported. Allergies No known drug allergies Medications Name Sig Start Date Stop Date Status Note LastModified by Organization Details LastModified Time amoxicill in 500 mg capsule TAKE 1 CAPSULE BY MOUTH THREE TIMES DAILY UNTIL GONE 11/08 completed Not Available Not Available Not Available azithromy amelie 250 mg tablet TAKE 2 TABLETS BY MOUTH ON DAY 1, AND THEN TAKE 1 TABLET BY MOUTH ONCE A DAY ON DAY 2 THROUGH DAY 5 11/08 completed Not Available Not Available Not Available ibuprofen 800 mg tablet TAKE 1 TABLET BY MOUTH EVERY 4 TO 6 HOURS NEEDED FOR PAIN 05/11 completed Not Available Not Available Not Available hydrocodo ne 5 mg-acetam inophen 325 mg tablet TAKE 1 TABLET BY MOUTH EVERY 4 TO 6 HOURS NEEDED 02/20 completed Not Available Not Available Not Available acetamino phen 300 mg-codein e 30 mg tablet TAKE 1 TABLET BY MOUTH EVERY 4 TO 6 HOURS NEEDED FOR PAIN 11/08 completed Not Available Not Available Not Available tamsulosi n 0.4 mg capsule TAKE 1 CAPSULE BY MOUTH ONCE DAILY AT BEDTIME 02/20 completed Not Available Not Available Not Available dexametha sone 4 mg tablet TAKE 2 TABLETS 1 HOUR PRIOR TO BED, 1 TAB IN MORNING, 2 TABS TOMORROW 1 HOUR BEFORE BEDTIME 11/08 completed Not Available Not Available Not Available lisinopri l 30 mg tablet TAKE 1/2 (ONE-KRISTEN F) TABLET BY MOUTH ONCE DAILY active Not Available Not Available No t Available lisinopri l 5 mg tablet TAKE 1 TABLET BY MOUTH ONCE DAILY active Not Available Not Available No t Available fluticaso ne propionat e 50 mcg/actua tion nasal spray,sg pension each nostril daily 02/20 completed 436; Recorded 11/04/19 17 10:55AM by Genia Pacheco LPN (Authori zed through Carlitos Pretty MD), Annotati on/Adden dum; Refill Quantity : 1; [place]; Not Available Not Available Not Available metformin ER 500 mg tablet,ex tended release 24 hr TAKE 1 TABLET BY MOUTH ONCE DAILY 11/11 completed Not Available Not Available Not Available finasteri de 5 mg tablet TAKE 1 TABLET BY MOUTH ONCE DAILY active Not Available Not Available No t Available tadalafil 20 mg tablet TAKE 1 TABLET BY MOUTH NEEDED active Not Available Not Available No t Available chlorhexi dine gluconate 0.12 % mouthwash RINSE WITH ONE CAPFUL FOR THIRTY SECONDS TWICE DAILY 05/11 completed Not Available Not Available Not Available Allergy daily 02/20 completed 436; Recorded 07/18/19 15 3:40PM by Genia Pacheco LPN (Loly puri through Carlitos Pretty MD), Office Visit; Mail Order Quantity : 90 Tablet; Mail Order Days: 90 Days; Refill Quantity : 90; Tablet; Not Available Not Available Not Available meloxicam daily 02/20 completed Recorded 10/08/19 22 8:41AM by Genia Pacheco LPN, Office Visit; Refill Quantity : 30; Tablet; Not Available Not Available Not Available lisinopri l daily 02/20 completed VO JR/bh; Recorded 08/20/19 4:06PM by Carlitos Pretty MD, Refill Request; Refill Quantity : 135; Tablet; Not Available Not Available Not Available metformin daily 02/20 completed Recorded 05/02/20 22 8:52AM by Melissa Castaneda RN, Office Visit; Refill Quantity : 90; Tablet; Not Available Not Available Not Available Miralax daily 02/20 completed 0; Recorded 05/02/20 22 8:52AM by Melissa Castaneda RN, Office Visit; Not Available Not Available Not Available GaviLyte- G 236 gram-22.7 4 gram-6.74 gram-5.86 gram oral solution USE DIRECTED THE DAY PRIOR TO YOUR PROCEDUR E 02/20 completed Not Available Not Available Not Available Vitals Date Recorded Body height Body mass index (BMI) Body weight Body temperature Heart rate Oxygen saturation Oxygen saturation in Arterial blood by Pulse oximetry Systolic And Diastolic Provider Name and Address Organization Details Last Updated DateTime 5 182.88 cm 31.9 kg/m2 939554. 21 g 97.4 [degF] 71 /min 97 % 97 % 102/68 mm[Hg] GENIA PACHECO [facility] 5 08:10:12 Date Recorded Body height Body mass index (BMI) Body weight Body temperature Heart rate Oxygen saturation Oxygen saturation in Arterial blood by Pulse oximetry Systolic And Diastolic Provider Name and Address Organization Details Last Updated DateTime 4 182.88 cm 39.9 kg/m2 485641. 16 g 97.8 [degF] 108 /min 98 % 98 % 112/72 mm[Hg] GENIA PACHECO [facility] 4 15:02:25 Social History Question Answer Notes LastModified by [employer] Details LastModified Time Tobacco Smoking Status Former Smoker GENIA zuluaga [facility] 02/20/2023 12:43:47 When Did You Quit Smoking? 14+yearssinc elastcigaret te Information not available 02/20/2023 At What Age Did You Start Smoking Tobacco? 12 [email or web address] Information not available 02/20/2023 Sex: Unknown Functional Status Question Answer Note LastModified by Organizat [employer] Details LastModified Time Do you use any illicit or recreational drugs? No [email or web address] Information not available 02/20/2023 What is your level of alcohol consumption? Occasional [email or web address] Information not available 02/20/2023 Mental Status None recorded. Family History Relationship Description Onset Age of this Age Resolved Age Notes LastModified by Organization Details LastModified Time Father Carcinoma of prostate [email or web address] Not available 02/20 12:41:20 Brother Diabetes mellitus [email or web address] Not available 02/20 12:41:31 Brother Carcinoma of prostate Not available 02/20 12:41:51 Mother Parkinson's disease [email or web address] Not available 02/20 12:41:43 Medical History No medical history recorded. Immunizations Vaccine Type Date Status Note Provider Nam e and Address Organization Details Recorded Time Tdap 1 kim zuluaga [facility] 02/20/2023 12:36:58 Influenza, split virus, trivalent, PF 6 kim zuluaga [facility] 02/20/2023 12:36:58 Influenza, split virus, trivalent, preservative 5 completed GENIA zuluaga [facility] 02/20/2023 12:36:58 Influenza, split virus, trivalent, preservative 6 completed GENIA zuluaga [facility] 02/20/2023 12:36:58 Past Encounters Encounter ID Performer Location Encounter Start Date Encounter Closed Date Diagnosis/Indication Diagnosis SNOMED-CT Code Diagnosis ICD10 Code Diagnosis IMO Codes Diagnosis Note [id number] Carlitos Pretty MD [facility] ([facility]) [address] [place] [address] 02/20/2023 12:27:55 02/20/2023 18:10:51 Hyperlipidemia 36857889 E78.5 Essential hypertension 23200860 I10 History of malignant neoplasm of prostate 409663359 Z85.[address] funez and psa was 0.02. he says. he has a 6 months follow up. Severe obesity 532869705 1 9104 Z68.41 Lower gastrointestinal hemorrhage 41018399 K92.2 has a history of diverticul ar bleeding and adenomatou s polyp on last colonoscop y History of adenomatous polyp of colon 600414276 Z86.010 Hyperglycemia 90834812 R 73.9 Fatigue 83598624 R53.83 Mass of soft tissue 4449 33013 R22.9 Dyspnea on exertion 6084 5006 R06.09 [id number] Carlitos Pretty MD [facility] ([facility]) [address] [place] [address] 5 07/17/2023 09:54:46 07/21/2023 11:00:13 Screening for malignant neoplasm of prostate 922126333 Z12.5 [id number] Carlitos Pretty MD [facility] ([facility]) [address] [place] [address] 5 11/09/2023 08:20:50 11/09/2023 12:10:12 Hypercholesterolemia 35959849 E78.00 Hypertensive disorder 38 429388 I10 Fatigue 70028196 R53.83 Morbid obesity 499345583 E66.01 Screening for malignant neoplasm of colon 044598154 Z12.11 History of malignant neoplasm of prostate 514564845 Z85.[address] funez and psa was 0.02. he says. he has a 6 months follow up. Malignant neoplasm of prostate 615504854 C61 Type 2 haris betes mellitus 72076736 E11.9 Right lowe r quadrant pain 492060812 R10.31 History of adenomatous polyp of colon 661381584 Z86.010 Excessive daytime sleepiness - normal night sleep 466172448 G47.19 easy to fall asleep during the day. his confirms he could sit down and take a nap during the day at any times and snores loudly and has witnessed apnea. we have discussed need to treat sleep apnea to prevent heart failure and other health issues. his is present today. Erectile dysfunction 860 064262 F52.21 Dupuytren' s disease of palm 633635725 M72.0 Hernia of anterior abdominal wall 351818443 K43.9 with lifting or straining he gets a stinging in the RLQ. it is causing him disability he will d/w surgery at his colonoscop y visit. [id number] Carlitos Pretty MD [facility] ([facility]) [address] [place], [place] [address] 04/29/2024 09:53:14 05/02/2024 08:19:52 History of malignant neoplasm of prostate 197111323 Z85.[address] funez and psa was 0.02. he says. he has a 6 months follow up. [id number] Carlitos Pretty MD [facility] ([facility]) [address] [place], [place] [address] 05/04/2024 08:12:16 05/04/2024 16:47:13 Hypercholesterolemia 83215966 E78.00 Hypertensive disorder 38 995600 I10 Hyperglycemia 13732236 R 73.9 [id number] Carlitos Pretty MD [facility] ([facility]) [address] [place] [address] 5 05/11/2024 14:31:47 05/12/2024 10:57:13 History of malignant neoplasm of prostate 483116238 Z85.[address] funez and psa was 0.02. he says. he has a 6 months follow up. [id number] Carlitos Pretty MD [facility] ([facility]) [address] [place] [address] 11/07/2024 09:37:29 11/08/2024 13:22:23 Hyperglycemia 36862413 R73.9 Hypertensive disorder 38 899958 I10 Hypercholesterolemia 136 38049 E78.00 [id number] Carlitos Pretty MD [facility] ([facility]) [address] [place] [address] 11/11/2024 08:02:28 11/11/2024 08:40:35 Essential hypertension 87642509 I10 849218 Hypercholesterolemia 136 24060 E78.00 [id number] Carlitos Pretty MD [facility] ([facility]) [address] [place] [address] 04/24/2025 09:26:18 04/25/2025 09:44:45 Carcinoma of prostate 739651979 C61 71227 Health Concerns Section Related Observation LastModified by Organization Detai ls LastModified Time None Recorded Concern Status LastModified by Organization Details LastModified Time None Recorded Advance Directives Directive None Recorded Payers Insurance Date Sequence Insurance Name Policy Number Policy Dent Covered Member ID Dent Member ID Guarantor Name 05/22/2025 1 [employer] (MEDICARE REPLACEMENT/A DVANTAGE - PPO) Michael Martinez [id number] Michael Martinez Notes Date Note Type Note Provider Name and Address Organization Details Recorded Time 05/11/2024 text/html Hypertension IM/FMReported by PatientHPIFor quality, patient reportshere for check-up. For severity, patient reportsnormal (<120/<80 mmhg)andat home bp check: ___ mmg/hg. For duration, patient reportshtn present for ___ years. For onset/timing, patient reportsgradual onset. For associated symptoms, patient reportsno shortness of breath,no palpitations, andno chest pain.he has cut back on some things for dm but eats cheese constantly. we discussed low cholesterol diet. he will cut back on saturated fats. he has gone low carb. he has reduced portions. he has lost 8 lbs. HyperlipidemiaReport ed by PatientHPIFor duration, patient reportschronic. For control, patient reportsnot at goal. For risk factors, patient reportshypertension. For complications, patient reportsno coronary artery diseaseandno cardiovascular disease.ROS as noted in the HPI hyperglycemia: A1C 6.3. Pt reports in the last couple of weeks he has been dieting. He was having a lot of swelling in his hands and getting clammy at night. He reports that since he has cut out sugars, his sxs have resolved. Carlitos Pretty MD [address] [place] [address], [phone], [facility] 05/11/2024 15:44:14 11/11/2024 text/html Hypertension IM/FMReported by PatientHPIFor quality, patient reportshere for check-up. For severity, patient reportsnormal (<120/<80 mmhg)andat home bp check: ___ mmg/hg(patient reports that bp have all been below 120 systolic.). For duration, patient reportshtn present for ___ years. For onset/timing, patient reportsgradual onset. For associated symptoms, patient reportsno shortness of breath,no palpitations, andno chest pain. HyperlipidemiaReport ed by PatientHPIFor duration, patient reportschronic. For control, patient reportsnot at goal(ldl 169). For risk factors, patient reportshypertension. For adherence to treatment plan, patient reportsfollows recommended diet. For complications, patient reportsno coronary artery diseaseandno cardiovascular disease.ROS as noted in the HPI hyperglycemia: A1C 4.6. Fasting glucose 104. Pt would like to see if he is able to get off of the metformin as he is having diarrhea. He has been losing weight and working on diet. His A1C has gone down as well. Carlitos Pretty MD [address] [place] [address], [phone], [facility] 11/11/2024 08:28:50
--- OUTSIDE RECORDS SUMMARY | 2025-05-22 12:50 | XMS_ITS | Clinical Summary ---
Author Organization [facility] Address [address] [place] [address] Phone Care Team Providers Care Insurance Sales Manager Name Role Phone Jt Bonds MD Primary Care Provider [phone] Allergies No known active allergies Medications simvastatin (ZOCOR) 20 mg tablet Take 20 mg by mouth Daily LATE. Active lisinopril (PRINIVIL) 5 mg tablet Take 5 mg by mouth daily. Active aspirin (ECOTRIN EC) 81 mg Tablet, Delayed Release (E.C.) Take 81 mg by mouth daily. Active DIPHENHYDRAMINE HCL (ALLERGY MEDICINE ORAL) Take 1 Tab by mouth daily. Active finasteride (PROSCAR) 5 mg tablet Take 5 mg by mouth daily. Active traMADol (ULTRAM) 50 mg tablet Take 50 mg by mouth daily. 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 Gender Identity Not on file Sexual Orientation Not on file Last Filed Vital Signs Vital Sign Reading Time Taken Comments Blood Pressure 128/72 08/02/2014 8:32 AM DIVISIONAL MERCHANDISING MANAGER LA Pulse 70 08/02/2014 8:23 AM DIVISIONAL MERCHANDISING MANAGER Temperature - - Respiratory Rate - - Oxygen Saturation - - Inhaled Oxygen Concentration - - Weight 119.9 kg (264 lb 6.4 oz) 08/02/2014 8:23 AM DIVISIONAL MERCHANDISING MANAGER Height 182.9 cm (6') 08/02/2014 8:23 AM DIVISIONAL MERCHANDISING MANAGER Body Mass Index 35.86 08/02/2014 8:23 AM DIVISIONAL MERCHANDISING MANAGER Plan of Treatment Health Maintenance Due Date [...] - 1-dose 75+ series) 2033 Insurance [address] [place] [address] [employer] G[employer] [id number] HMO Care Teams Insurance Sales Manager Relationship Specialty Start Date End Date Jt Bonds MD [address] [address] PCP - General Family Practice 08/04/14
--- OUTSIDE RECORDS SUMMARY | 2025-05-22 12:53 | XMS_ITS | Patient Health Record ---
Author Organization [facility] Address [address] [place] [address] Care Team Providers Care Emt/Dispatcher Name Role Phone Jt Bonds MD Primary Care Provider Lizzy Shea [phone] Allergies No Known Allergies Reason For Referral No Information Medications Medication SIG (Take, Route, Frequency, Duration) Notes Start Date End Date Status Finasteride 5 MG Tablet 1 tablet Orally Once a day Active Lisinopril 30 MG Tablet 1 tablet Orally Once a day Active metFORMIN HCl ER 500 MG Tablet Extended Release 24 Hour 1 tablet with evening meal Orally Once a day Active Colace 100 MG Capsule 1 capsule as neede d Orally Twice a day; Duration: 30 day(s) 07/20/2020 Not-Taking Robaxin-750 750 MG Tablet 1 tablet Orall y every 8 hrs; Duration: 30 day(s) 07/20/2020 Not-Taking oxyCODONE HCl 10 MG Tablet 1 tablet as needed Orally every 6 hrs; Duration: 14 days 07/20/2020 Not-Taking Allergy Active Social History Tobacco Use: Social History Observation Description Date Details (start date - stop date) Never Smoker NA - NA Social History Depression Screening Social Info Question Answer Notes PHQ-9 Little interest or pleasure in doing thin gs Not at all Feeling down, depressed, or hopeless Not at all Trouble falling or staying asleep, or sleeping t oo much Not at all Feeling tired or having little energy Not at all Poor appetite or overeating Not at all Feeling bad about yourself, or that you are a failure, or have let yourself or your family down Not at all Trouble concentrating on thi ngs, such as reading the newspaper or watching television Not at all Moving or speaking so slowly that other people could have noticed. Or the opposite ? being so fidgety or restless that you have been moving around a lot more than usual Not at all Thoughts that you would be b bebe off , or of hurting yourself in some way Not at all Total Score 0 Drugs/Alcohol: Social Info Question Answer Notes Alcohol Screen (Audit-C) Did you have a drink containing alcohol in the past year? No Points 0 Interpretation Negative Drugs Have you used drugs other than those for medical reasons in the past 12 months? No Tobacco Use: Social Info Question Answer Notes xTobacco Use/Smoking Are you a nonsmoker Section Notes: 0 0 0 0 0 0 0 0 0 Problems Problem Type SNOMED Code ICD Code Onset Dates Problem Status W/U Status Risk Notes Problem Lower urinary tract symptoms due to benign prostatic hypertrophy (15228627840887) Benign prostatic hyperplasia with lower urinary tract symptoms (N40.1) Active confirmed Problem Erectile dysfunction (disorder) (359788044) Erectile dysfunction, unspecified erectile dysfunction type (N52.9) Active confirmed Problem Screening for malignant neoplasm of prostate (061032370) Prostate cancer screening (Z12.5) Active confirmed Problem Sacroiliitis (07227530) Sacroiliitis (M46.1) Active confirmed Problem History of malignant neoplasm of prostate (129499149) History of prostate cancer (Z85.46) Active confirmed Problem Benign prostatic hypertrophy with outflow obstruction (855161256) BPH loc w urin obs/LUTS (N40.1) Active confirmed Problem Degeneration of lumbar intervertebral disc (90143469) Disc degeneration, lumbar (M51.36) Active confirmed Problem History of radiation exposure (101211051) Status post radiation therapy (Z92.3) Active confirmed Plan Of Treatment Pending Test Test Name Order Date UA Without Micro-Auto, Machine - [id number] [id number] 01/12/2023 PSA Diagnostic--[id number] 07/21/2022 Insurance Providers Payer Name Payer Address Payer Phone Subscriber Number Group Number Insured Name Patient Relationship to Insured Coverage Start Date Coverage End Date [employer] Medicare Replacement [address] [address] [place] [phone] [id number] Michael Martinez Self - patient is the insured Medical (General) History Medical History History ICD Code measles, chicken pox arthritis high blood pressure back pain diabetes Cancer Hemorrhoids Surgical History Surgery Date(Month/Year) right SI joint fusion 07/2020
--- NOTE | 2025-05-25 07:59 | DCPLANNER ---
faxed outpatient ct to scheduling
== END 2025-05-22 12:09 | disposition home or self-care (01) ==
PROVIDERS: Emergency Provider Family Medicine; PCP Family Medicine
DX: M54.16 Radiculopathy, lumbar region (principal); N28.89 Other specified disorders of kidney and ureter; C61 Malignant neoplasm of prostate; Z87.891 Personal history of nicotine dependence
CPT/HCPCS: 36415; 72131; 80053; 85025; 96374; 96375; 99285; J1885; J2270; J2919

== ENCOUNTER 2025-05-26 08:51 | Outpatient (CLI) | payer MEDICARE, SELFPAY ==
--- NOTE | 2025-05-26 09:00 | CT_ITS ---
WS: [id number] CT abdomen pelvis wo/w [id number] REASON FOR EXAM: LEFT RENAL MASS IV CONTRAST ADMINISTERED: 100 mL of Omnipaque 350. TOTAL EXAM DLP: 3232.[address] scans at [facility] use at least one of these dose optimization techniques: automated exposure control; mA and/or kV adjustment per patient size (includes targeted exams where dose is matched to clinical indication); or iterative reconstruction. TECHNIQUE: Oral contrast was administered. Multiple axial images without intravenous contrast enhancement. Following intravenous administration multiple axial images were obtained during the portal venous phase with coronal and sagittal reconstructions. Multiple axial images in the delayed phase with coronal reconstructions. FINDINGS: ABDOMEN: Normal liver, spleen, and pancreas. Status post cholecystectomy. Adrenal glands within normal limits. Several small right renal cysts with 2 cm partially exophytic lower pole renal cyst. Several tiny cysts within the left kidney with a small solitary renal calculus. 2.5 x 2.8 cm central parapelvic cysts which impinges on the renal pelvis. 3.8 x 4.1 x 4.4 cm solid heterogeneously enhancing mass from the mid lateral left kidney. The mass invades through the renal parenchyma and into the renal sinus fat. No renal vein thrombosis or tumor is identified. On the mid inferior aspect of the exophytic portion of the mass there appears to be invasion of the adjacent perinephric fat/fascia. No adenopathy is identified. Moderate/significant degenerative spondylosis of the lumbar spine with no focal vertebral body lesion. PELVIS: No adenopathy or mass. No abnormality of the urinary bladder. Screw fixation of the right sacroiliac joint. 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 No focal lesion of the bony pelvis. CT/CT abdomen pelvis wo/w [id number] IMPRESSION: Left renal cell carcinoma with invasion of the renal sinus fat. No renal vein t hrombosis or tumor identified. Possible invasion of the perinephric fat/fascia.
[2025-05-26] MEDS: iohexol 350 mg/mL 500 mL Btl (per mL) PO (09:29)
[2025-05-26] MEDS: iohexol 350 mg/mL 500 mL Btl (per mL) IV (09:29)
== END 2025-05-26 08:52 | disposition home or self-care (01) ==
LOC: RAD 08:52
PROVIDERS: PCP Family Medicine; Visit Provider Family Medicine
DX: N28.89 Other specified disorders of kidney and ureter (principal); C64.2 Malignant neoplasm of left kidney, except renal pelvis; Z90.49 Acquired absence of other specified parts of digestive tract
CPT/HCPCS: 74178

== ENCOUNTER → 2025-06-05 09:40 | Outpatient (BNVA) | payer MEDICARE, SELFPAY | PROVIDERS: PCP Family Medicine; Visit Provider Internal Medicine | DX: R06.09 Other forms of dyspnea (principal); I10 Essential (primary) hypertension; Z87.891 Personal history of nicotine dependence | CPT/HCPCS: 99213 ==